=== PATIENT | male | born 1965 | race Caucasian/White ===

== ENCOUNTER 2017-01-08 18:15 | Inpatient (IN) | payer OTHER ==
[~2017-01-08] VITALS: Ht 190.5 cm; Wt 119.2 kg
[~2017-01-08 18:15] MED LIST: LISI-567 PO; LORA-305 PO; LORA1TAB PO; ONDA4TAB12 PO; ONDA8TAB10 PO
[2017-01-08 18:29] VITALS: BP 99/72; PULSE 143; RESP 16; O2SAT 98
--- NOTE | 2017-01-08 19:02 | ED.REPORT ---
HPI-General Illness Date of Service January 08, 2017 ED Provider: Sen Arguello MD 51 year old male with a history of alcoholism and HTN who presents to the ER due to confusion. Pt fell and hit his head on a hinge on the door 4 days ago and received 4 rika at the time. His daughter states that since the head injury he has been confused even when he has not been drinking alcohol. He also reports head pain, neck pain, vomit x1 yesterday, bloody stool [id number] and some decreased LOC. Pt denies abd pain. After the fall, the patient was seen again in the ER due to an episode of "blanking out". At the time patient was started on Librium for EtOH withdrawal. Pt has continued to drink despite being on this medication. Pt has hx of alcohol withdrawal with DT's and seizures. Pt states "I'll drink until its gone". Typically 4-6 hard ciders per day. His last drink was 30 minutes [employer]. Pt's last period of sobriety was about a month ago. Nursing Notes Stated Complaint: DIZZY, POST HEAD INJURY Chief Complaint: Head, Face, Neck Trauma Nursing Notes Reviewed: Yes Allergies: Coded Allergies: No Known Allergies (Unverified , 04/03/16) Scheduled Lorazepam (Ativan) 2 Mg Tablet 2 MG PO DIRECTED Take one tablet by mouth every 6 hours for 24 hours, then take 1/2 tablet by mouth every 6 hours for 48 hours, then take 1/2 tablet by mouth every 12 hours for 24 hours. Scheduled PRN ([Marijuana Candy]) 1 EACH PO BID PRN PRN RECREATIONAL Ibuprofen (Ibuprofen) 200 Mg Capsule 800 MG PO QID PRN PRN For Pain Lisinopril (Lisinopril) 20 Mg Tablet 20 MG PO QAM PRN PRN HYPERTENSION W/ WITHDRAWAL General Time Seen by MD: 19:00 Chief Complaint Altered mental status, Other (EtOH Intoxication) Hx Obtained From: Patient Arrived By: Ambulance Sudden in Onset?: No Location: : Head: Neck Quality: Painful Severity: Current: Mild Associated with: Reports: Headache, Neck pain, Denies: Abdominal pain, Fever, Shortness of breath Exacerbated by: Drinking Similar Sx Previous: Yes Past Medical History Past Medical History Notes: Seen in ED 04/03, 04/08 for ETOH (discharged to home, no [facility] hospitalizations, hx of sx x1 years ago, none since) Two ED visits for ETOH in March 2016 Past Medical History Hx of alcohol abuse Reports: Hypertension Past Surgical History Hernia surgery Family History Noncontributory Smoking History Never Smoker Social History Currently residing with his girlfriend. 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 Physical Exam Vital Signs Vital Signs Date Time Temp Pulse Resp B/P Pulse Ox O2 Delivery O2 Flow Rate FiO2 01/08/17 21:24 96 24 86/59 98 Room Air 01/08/17 18:29 36.7 143 16 99/72 98 Room Air Initial VS: Reviewed Skin: Warm, Dry, No cyanosis General/Constitutional: Awake, Alert Head / Eyes: Normocephalic, PERRL 4 rika to top of scalp without surrounding erytehma no active bleeding. Neck: Atraumatic, Full range of motion, No midline vertebral tend Respiratory / Chest: Breath sounds NL, Breath sounds = bilat, No respiratory distress, No rales, No rhonchi, No wheezing Cardiovascular: Regular rhythm, Heart sounds NL, No murmurs, Peripheral circulation NL Heart Rate / Rhythm: Positive: Tachycardia Abdomen: Soft, Non-tender (No RUQ tenderness), No guarding, No rebound Rectum / Perineum: Blood - occult heme - Neurologic: Oriented X3, Speech NL, No motor deficits No tremor or asterixis Interpretation & Diagnostics Lab Results Interpretation Result Diagram: 01/08/17 1925 01/08/17 1855 Test 01/08/17 18:55 01/08/17 19:25 01/08/17 19:32 01/08/17 19:36 Sodium Level 128mEq/L (134-144) Potassium Level 4.7mEq/L (3.5-5.2) Chloride Level 89mEq/L (97-108) Carbon Dioxide Level 24mmol/L (18-29) Blood Urea Nitrogen 8mg/dL (6-24) Creatinine 0.66mg/dL (0.76-1.27) Estimat Glomerular Filtration Rate 134mL/min (>59) Glucose Level 144mg/dL (60-99) Calcium Level 8.1mg/dL (8.5-10.1) Total Bilirubin 3.6mg/dL (0.0-1.2) Aspartate Amino Transf (AST/SGOT) 341U/L (0-50) Alanine Aminotransferase (ALT/SGPT) 201U/L (0-44) Alkaline Phosphatase 285U/L (25-150) Total Protein 5.7g/dL (6.4-8.4) Albumin 2.9g/dL (3.4-5.0) Alcohols 328mg/dL (0-10) White Blood Count 4.2th/mm3 (3.8-10.1) Red Blood Count 4.43mil/mm3 (4.40-5.80) Hemoglobin 13.8g/dL (13.8-17.2) Hematocrit 38.4% (41.0-50.0) Mean Corpuscular Volume 86.7fL (81-100) Mean Corpuscular Hemoglobin 31.2pg (27.0-35.0) Mean Corpuscular Hemoglobin Concent 35.9% (32.0-37.0) Red Cell Distribution Width 17.1% (12.3-15.4) Platelet Count 70bil/L (150-400) Neutrophils (%) (Auto) 45.1% (40-74) Lymphocytes (%) (Auto) 44.6% (14-46) Monocytes (%) (Auto) 9.9% (4-12) Eosinophils (%) (Auto) 0.2% (0-5) Basophils (%) (Auto) 0.2% (0-3) Prothrombin Time sec (8.1-12.5) Prothromb Time International Ratio ratio Activated Partial Thromboplast Time 31.8sec (22.8-33.0) Hold Red Top Tube Received (Received) Hold Edmonds Top Tube Received (Received) Hold Kim Top Tube Received (Received) Lipase 78U/L (13-60) Test 01/08/17 20:15 01/08/17 20:46 Urine Color Yellow (YELLOW) Urine Appearance Clear (CLEAR,HAZY) Urine pH 5.5 (5.0-8.0) Urine Specific [place] 1.004 (1.003-1.035) Urine Protein Negativemg/dL (NEG,TRACE) Urine Glucose (UA) Negativemg/dL (NEGATIVE) Urine Ketones Negativemg/dL (NEGATIVE) Urine Occult Blood Negative (NEGATIVE) Urine Nitrite Negative (NEGATIVE) Urine Bilirubin Negative (NEGATIVE) Urine Urobilinogen Normalmg/dL (NORMAL) Urine Leukocyte Esterase Negative (NEGATIVE) Urine RBC 0-2/hpf (0-2) Urine WBC 0-5/hpf (0-5) Urine Epithelial Cells Occasional/hpf (NONE-MOD) Urine Crystals None seen (NONE SEEN) Urine Bacteria None/hpf (NONE-FEW) Urine Hyaline Casts None/lpf (NONE) Urine Granular Casts None seen (NONE SEEN) Urine Waxy Casts None seen (NONE SEEN) Urine Red Blood Cell Casts None seen (NONE SEEN) Urine White Blood Cell Casts None seen (NONE SEEN) Urine Mucus None seen (None Seen) Urine Trichomonas None seen (NONE SEEN) Urine Yeast None (NONE SEEN) Urinalysis Comment Ammonia 17ug/dL (18-53) General Lab Results Interp 1: Labs reviewed ECG Interpretation Time: 19:18 Interpreted by: ED physician Normal ECG Interpretation: No acute ischemic changes Rhythm / Conduction: Atrial fibrillation (rate 110), Atrial fib with RVR CT Head Interpretation IMPRESSION: No acute intracranial abnormalities after fall. Dictated by: Bharath Fairchild M.D. on 01/08/2017 at 19:27 Study: Head CT no contrast Interpretation / Wet Read by: Interpret - Radiologist Re-Eval/Medical Decision Med Decision/Clinical Course 51-year-old male history of extensive alcohol abuse, withdrawal seizures, DTs presenting with confusion 4 days status post ground level fall. Patient reports that he was in [facility] over the weekend and was very intoxicated and fell and hit his head requiring rika. Since then he has been confused. He is also been taking Librium given by in [facility] and has been drinking since he came back. Normally drinks 4-6 times per day. In [facility] he drank as much as he could. He reports some right upper quadrant pain or last couple days which is resolved prior to arrival. His labs show INR and PTT to high to calculate, bilirubin of 3.6, normal white blood cell count, normal pneumonia. Patient will be admitted for alcoholic hepatitis. Also with atrial fibrillation with RVR which resolved prior to transfer without intervention. Right upper quadrant ultrasound is pending though I do not suspect cholecystitis given normal white blood cell count and no right upper quadrant tenderness. Discussed with GI who will see patient tomorrow. Patient was given prednisolone 40 mg and placed on CIWA. Time of Eval: 20:53 Re-Evaluation/Progress Note: Updated pt of labs. Recommended admission. Pt understands and agrees with plan. All questions addressed. Time of Eval: 22:00 Evaluation: Abdomen soft/non-tender Re-Evaluation/Progress Note: Pt rechecked and updated. Consultation #1: Referral / Consult Name: Gnia Rodriguez DO Consulted With: Hospitalist Call Returned at: 22:05 Road Oiler: Will see patient, Agrees with eval, Agrees with plan, Accepts admit Consultation #2: Referral / Consult Name: Sabino Jack MD Consulted With: On-call physician (GI) Call Returned at: 22:22 Road Oiler: Will see patient Note: No further recommendations. Counseled Regarding: Diagnosis, Lab results, Need for admission Discharge & Departure Primary Impression: Alcoholic hepatitis Ascites presence: without ascites Qualified Code: K70.10 - Alcoholic hepatitis without ascites Additional Impression: Atrial fibrillation with RVR Disposition: ADMITTED TO HOSPITAL Discharge Condition All VS Reviewed: Yes Referrals: Quyen Vicente MD (PCP) Crit Care Except Billable Proc Time Spent: 30-74 minutes Services Performed: Patient management by me, Time spent at bedside, Reviewing test results, Reviewing imaging, Discussing patient care, Documentation in record, Time with fam/surrogate Scribe Attestation Portions of this note were transcribed by Ivory Guerrero. I, (Dr. Sen Wright) personally performed the history, physical exam and medical decision- making; I reviewed and confirmed the accuracy of the information in the transcribed note. Signed by: Ivory Guerrero. [place], 01/08/2017, 2841 copies to: Quyen Vicente MD, Ben M MD January 08, 2017 19:02 Ivory Guerrero January 08, 2017 20:38
--- NOTE | 2017-01-08 19:32 | DRSVH ---
PROCEDURE: CT BRAIN WITHOUT CONTRAST ([id number]) INDICATIONS: 51 year-old male with altered mental status after fall 4 days ago. TECHNIQUE: Noncontrast 4.5 mm thick angled axial sections acquired from the foramen magnum to the vertex, with c oronal reformats. COMPARISON: None. FINDINGS: Image quality: Excellent. CSF spaces: Basal cisterns are patent. No extra-axial fluid collections. Ventricles are normal in size and shape. Brain: No midline shift. No intracranial masses or hemorrhage. Leblanc-white matter interface is norm al. Incidental prominent perivascular space is present within the right basal ganglia. Skull and face: Calvarium and visualized facial bones are intact, without suspicious lesions. Superi or left frontal scalp skin riak are present. Sinuses: Visualized sinuses and mastoids are clear. IMPRESSION: No acute intracranial abnormalities after fall. Dictated by: Bharath Fairchild M.D. on 01/08/2017 at 19:27 Approved by: Bharath Fairchild M.D. on 01/08/2017 at 19:30
[2017-01-08 19:35] LABS: BASOPHILS % (AUTO) 0.2 % (0-3); EOSINOPHILS % (AUTO) 0.2 % (0-5); MONOCYTES % (AUTO) 9.9 % (4-12); Mean Corpuscular Hemoglobin 31.2 pg (27.0-35.0); Mean Corpuscular Volume 86.7 fL (81-100); NEUTROPHILS % (AUTO) 45.1 % (40-74); Platelet Count 70 bil/L (150-400)
[2017-01-08] MEDS ORDERED: Diltiazem 5 mg/mL 5 mL Inj IVPUSH ONE (20:50)
[2017-01-08] MEDS ORDERED: PrednisoLONE 1 mg/mL 118 mL Solution PO ONE (20:50)
[2017-01-08] MEDS ORDERED: PrednisoLONE 3 mg/mL 237 mL Oral Liquid PO ONE (21:00)
[2017-01-08 21:03] LABS: APPEARANCE,URINE CLEAR (CLEAR,HAZY); COLOR,URINE YELLOW (YELLOW); OCCULT BLOOD,URINE NEGATIVE (NEGATIVE); PH,URINE 5.5 (5.0-8.0); UROBILINOGEN,URINE NORMAL (NORMAL)
[2017-01-08] MEDS ORDERED: Thiamine Inj 100 MG, Folic Acid Inj 1 MG, Magnesium Sulfate 50% Inj 2 GM, Multivitamins... IV ONE ×5 (21:20)
[2017-01-08] MEDS ORDERED: 0.9% Sodium Chloride 1,000 ML IV ONE (21:20)
[2017-01-08 21:24] VITALS: BP 86/59; PULSE 96; RESP 24; O2SAT 98
[2017-01-08] MEDS ORDERED: IBUP200C PO (21:36)
[2017-01-08] MEDS ORDERED: [UNRECOGNIZED DRUG - OTHER] PO (21:36)
[2017-01-08 22:12] VITALS: BP 102/70; PULSE 117; RESP 27
[2017-01-08] MEDS ORDERED: Ondansetron 2 mg/mL 2 mL Inj IVPUSH PRN ×2 (22:15→23:20)
[2017-01-08] MEDS ORDERED: Alum-Mag Hydrox-Simeth 30 mL Suspension PO PRN ×2 (22:15→23:20)
[2017-01-08 22:35] VITALS: BP 103/62; PULSE 116; RESP 16; O2SAT 100
[2017-01-08 23:20] VITALS: BP 114/73; PULSE 94; RESP 16; O2SAT 93
[2017-01-08] MEDS ORDERED: Polyethylene Glycol (PEG) 17 Gm Powder PO PRN (23:20)
[2017-01-08 23:45] VITALS: PULSE 139
--- NOTE | 2017-01-08 23:46 | PCM.HPMED ---
Subjective Date of Service January 08, 2017 Primary Provider: Admitting Physician: Gina Rodriguez DO Primary Care Physician: Quyen Vicente MD Attending Physician: Gina Rodriguez DO Admit Status: From the Emergency Department Chief Complaint: Confusion, nausea, vomiting History of Present Illness: Calvin Luque is a 51 year old man with a PMH of HTN, and alcoholism with a history of withdrawal seizures who presents following and episode 4 days ago in which he fell in [place] and suffered a laceration on his scalp requiring 4 tung while he was very inebriated. Since that day he has been "blackout drunk " with very little recollection of the past 3 days and with complete amnesia of a second admission to the hospital in [place] as related by his girlfriend who was with him throughout. He expresses an ardent desire to quit alcohol for good this time "no matter what it takes". He was given Librium in [place] which he continued to take despite continuing to drink heavily. He states that he has been quite nauseous for the past 2-3 days, which he has managed with Marijuana brownies with minimal improvement. He states his typical baseline consumption is 4-6 hard ciders daily, but that he drank significantly more than that while in [place]. He denies abdominal pain, hematochezia or melena, changes in vision or sensation, active bleeding from his scalp laceration, or current withdrawal symptoms such as tremor or anxiety. In the ED the patient underwent Head CT which was negative, Lab evaluation revealed significant transaminitis with a minimally elevated lipase, PT/INR 15.0 /1.39 Review of Systems: Comprehensive ROS negative except as outlined above in the HPI Allergies Coded Allergies: No Known Allergies (Unverified , 04/03/16) Home Medications ([Marijuana Candy]) 1 EACH PO BID PRN PRN RECREATIONAL Ibuprofen (Ibuprofen) 200 Mg Capsule 800 MG PO QID PRN PRN For Pain Lisinopril (Lisinopril) 20 Mg Tablet 20 MG PO QAM PRN PRN HYPERTENSION W/ WITHDRAWAL PMH Seen in ED 04/03, 04/08 for ETOH (discharged to home, no [facility] hospitalizations, hx of sx x1 years ago, none since) Two ED visits for ETOH in March 2016 Hx of alcohol abuse Reports: Hypertension Surgical History Hernia surgery Family History No significant family history that he is aware of Social History Hx Alcohol Use: Yes (daily a case of beer) Hx Substance Use: No Smoking Status: Never Smoker Exam Vital Signs Vital Sign - Last Date Time Temp Pulse Resp B/P Pulse Ox O2 Delivery O2 Flow Rate FiO2 01/08/17 22:51 36.7 116 16 103/62 100 Room Air Exam Gen: A/O x3 pleasant cooperative intoxicated gentleman smelling of alcohol Head: Approx 3 cm laceration with [address], no erythema, active bleeding, or discharge Neck: Supple, non tender, no JVD, no thyromegaly HEENT: PERRL, EOMI, no scleral icterus, no conjunctival pallor, mucous membranes moist CV: RRR, no murmurs rubs or gallops Resp: Lungs CTA BL, no wheezing rales or rhonchi Abd: Soft, mildly tender in RUQ, no rebound masses or guarding, Liver barely palpable below costal margin with deep inspiration Extr: no cyanosis clubbing or edema Neuro: No asterixis, no tremor, CN 2-12 grossly intact, no focal neurologic deficit Psych: Somewhat flippant affect with frequent jokes, some repetitious statements , several lewd comments with little apparent inhibition, pleasant affect Lab and Diagnostics Labs Item Value Date Time Red Blood Count 4.43 mil/mm3 01/08/171924 Red Cell Distribution Width 17.1 % H 01/08/171924 Platelet Count 70 kim/L L 01/08/171924 Neutrophils (%) (Auto) 45.1 % 01/08/171924 Lymphocytes (%) (Auto) 44.6 % 01/08/171924 Monocytes (%) (Auto) 9.9 % 01/08/171924 Eosinophils (%) (Auto) 0.2 % 01/08/171924 Basophils (%) (Auto) 0.2 % 01/08/171924 Estimat Glomerular Filtration Rate 134 mL/min 01/08/171854 Calcium Level 8.1 mg/dL L 01/08/171854 Total Bilirubin 3.6 mg/dL H 01/08/171854 Aspartate Amino Transf (AST/SGOT) 341 U/L H 01/08/171854 Alanine Aminotransferase (ALT/SGPT) 201 U/L H 01/08/171854 Alkaline Phosphatase 285 U/L H 01/08/171854 Ammonia 17 ug/dL L 01/08/17 204 Total Protein 5.7 g/dL L 01/08/171854 Albumin 2.9 g/dL L 01/08/171854 Lipase 78 U/L H 01/08/17 1936 Alcohols 328 mg/dL H 01/08/171854 Result Diagram: 01/08/17 1925 01/08/171854 Microbiology Urine culture pending X-Rays, CTs and MRIs CT BRAIN WITHOUT CONTRAST IMPRESSION: No acute intracranial abnormalities after fall. Dictated by: Bharath Fairchild M.D. on 01/08/2017 at 19:27 Approved by: Bharath Fairchild M.D. on 01/08/2017 at 19:30 . 12-lead ECG Initial ECG Afib rate 110, no acute ST changes Assessment & Plan Calvin Luque is a 51 year old man with a PMH of HTN, and alcoholism with prior withdrawal seizures 1 year ago who presents acutely intoxicated seeking medically assisted withdrawal. Recent history is significant for a GLF on resulting in a laceration requiring 4 tung. In the ED lab evaluation reveals acutely elevated transaminitis with elevated Alk Phos in a Hepatocellular pattern consistent with alcoholic Hepatitis MELD and Discriminate Function 1. Alcoholic Hepatitis, POA, likely acute on chronic. Active -Patient MELD 22 confers estimated 6% month mortality, Discriminate Function 26.6 does not indicate need for glucocorticoids -Banana bag given in the ED, continue thiamine supplementation -Full liquid diet due to nausea, advance as tolerated -RUQ US of Liver tomorrow AM -Patient with multiple ED visits for outpatient Benzo assisted alcohol detoxification, all of these attempts have ultimately proved fruitless with sporadic non-sustained periods of sobriety; patient would likely benefit from a more intensive detoxification and rehabilitation process -Patient without Ascites, little concern for SBP 2. Acute alcohol intoxication with history of withdrawal seizures, POA, acute on chronic. Active -Patient expressing a desire to undergo inpatient detox -Reported history of withdrawal seizures during prior detox -Blood alcohol 326 on admit with last drink 30 minutes prior to presentation(14: 00 on 01/08/17) -WA protocol with Valium -Case management referral for discussion of extended inpatient rehabilitation 3. Scalp Laceration, POA, acute. Active -[place] appear patent and wound does not exhibit any signs of active bleeding or infection -Tung inserted 01/04/17, will likely need to come out during this hospitalization -Monitor for bleeding given grossly elevated INR 4. Afib with RVR, POA, acute. Active -Patient is not aware of any previous diagnosis of Afib -His last 2 ER visits for EtOH withdrawal he was markedly tachycardic but there is no record of ECG for those visits -Patient borderline Hypotensive upon presentation -Will attempt fluid resuscitation to correct Tachycardia -Given single dose of Diltiazem in ED which brought rate down to 110-120 range, will consider further dosing should the rate increase again -ECHO tomorrow AM to eval for structural heart disease in the setting of longstanding alcoholism 5. Hyponatremia, POA, chronicity uncertain. Active -Na 128 -Will consider fluid restriction on this gentleman once Lactic Acid has trended back to normal and Banana bags have run their course 6. Lactic Acidosis, POA, likely chronic. Active -Likely secondary to impaired Lactate utilization in alcoholism -Patient has received 2L of banana bag IVF since admission -Trending Lactate Q4 7. Mild normocytic anemia, POA, likely chronic. Active -H/H 13.8/38.4 -Will repeat CBC in the AM 8. Mild thrombocytopenia, POA, likely chronic. Active -Likely secondary to Above liver disease -Given the above mild normocytic anemia a peripheral blood smear will be ordered 9. Mildly elevated Lipase, POA, Likely chronic. Active -Likely secondary to above alcoholism -Patient asymptomatic, likely sub clinical mild alcoholic pancreatitis -IVF and supportive care as above -Continue to encourage alcohol cessation Code Status: FULL CODE Disposition: Inpatient, anticipated length of stay >2 midnights due to severity of condition and complexity of treatment plan. Pain Evaluation: Adequate Pain Control GI Prophylaxis: H2 joan VTE Prophylaxis: Other (Grossly elevated INR) Resuscitation Status: CPR: Attempt Resuscitation Attending Statement The patient was seen and examined together with house staff on 01/08/2017 and I agree with the history, exam and plan as outlined in the note above. Sang Smith DO January 08, 2017 23:46 Gina Rodriguez DO January 09, 2017 05:36
[2017-01-09] VITALS (7 sets, daily range): BP systolic 122–155; BP diastolic 81–107; PULSE 75–150; RESP 13–20; O2SAT 93–98
[2017-01-09 00:05] LABS: INR 1.39 ratio
--- NOTE | 2017-01-09 01:02 | NUR ---
NEW ADMIT Pt admitted to floor @ 2320 from ED for increased confusion from a head injury from a recent fall 4 days ago. Pt has 4 staple on top of head from fall. Pt has a hx of ETOH abuse. Pt c/o 6/10 pain in head/neck, received 2mg Morphine with good results. Current CIWA score is 5. Admit complete, pt resting comfortably @ this time.
[2017-01-09] MEDS ORDERED: Diltiazem 5 mg/mL 5 mL Inj IVPUSH ONE ×2 (04:25→06:05)
[2017-01-09 05:09] LABS: BASOPHILS % (AUTO) 0 % (0-3); EOSINOPHILS % (AUTO) 0 % (0-5); MONOCYTES % (AUTO) 4.3 % (4-12); Mean Corpuscular Hemoglobin 31.2 pg (27.0-35.0); NEUTROPHILS % (AUTO) 69.6 % (40-74); Platelet Count 66 bil/L (150-400)
[2017-01-09 05:30] LABS: Magnesium 1.9 mg/dL (1.6-2.6); Phosphorus 3.1 mg/dL (2.5-4.9)
--- NOTE | 2017-01-09 05:33 | NUR ---
HEART RATE Pt's HR continued to be elevated 100-200's and was hovering in the 160's @ rest. Pt was give 10mg Dilt IV push with good results. Pt's HR is stable in the 100's @ this time. Pt is currently in A-flutter. Addendum: 01/09/17 at 0708 by NATALIE KAYE RN HR continued to spike into 200's, gave 20mg Dilt IV push with good results. Pt stable in 100's again at this time.
[2017-01-09] MEDS ORDERED: Piperacillin-Tazo 3.375 Gm Inj 3.375 GM in Dextrose 5% Minibag Plus 50 ML IV ONE (05:35)
[2017-01-09] MEDS ORDERED: PrednisoLONE 3 mg/mL 237 mL Oral Liquid PO SCH (08:30)
[2017-01-09] MEDS ORDERED: Thiamine Inj 100 MG, Folic Acid Inj 1 MG, Magnesium Sulfate 50% Inj 2 GM, Multivitamins... IV SCH ×5 (08:30)
--- NOTE | 2017-01-09 09:22 | DRSVH ---
PROCEDURE: US ABDOMEN INDICATIONS: Likely Alcoholic Hepatitis TECHNIQUE: Real-time scanning was performed of the abdominal and retroperitoneal organs, with image documentatio n. COMPARISON: None. FINDINGS: Liver length: 19.01 cm Gallbladder Wall Thickness: 3.30 mm CHD: Not seen CBD: Not seen Spleen length: 11.10 cm Right kidney length: 12.10 cm Left kidney length: 11.53 cm Aorta(Proximal): 2.14 cm Aorta(Mid): 1.85 cm Aorta(Distal): 1.92 cm RCIA: Obscured by body habitus less bowel gas LCIA: Obscured by body habitus less bowel gas Liver: The liver is coarsely echogenic. No focal hepatic lesion. The liver is enlarged Gallbladder: Gallbladder sludge is present which occupies approximately 75% of the gallbladder lumen. There is questionable/borderline distention of the gallbladder. No pericholecystic fluid or sonograp hic Watkins sign Biliary ducts: Intrahepatic bile ducts are non-dilated. Extrahepatic bile duct caliber is normal. Normal is 6-7 mm or less in diameter, or 10 mm or less post-cholecystectomy. Pancreas: Visualized portions of the pancreas are sonographically normal. The pancreatic tail is no t well seen sonographically Spleen: Spleen is normal in size and homogeneous in echotexture. Kidneys: Kidneys are normal in size and echotexture. No hydronephrosis or nephrolithiasis. No lexi d masses. Aorta: Visualized aorta is normal in caliber at less than 3 cm. Iliacs: Proximal common iliac arteries are normal in caliber at less than 2.5 cm. IVC: Intrahepatic inferior vena cava is patent. Miscellaneous: No free abdominal fluid. IMPRESSION: Large amount of gallbladder sludge with borderline gallbladder wall thickening, and mildly distended appearance. No other sonographic criteria for acute cholecystitis however the bile ducts are not well seen due to body habitus/bowel gas. Therefore, please correlate clinically and with LFTs. Enlarged, echogenic liver suggesting diffuse hepatocellular disease/fatty infiltration. Dictated by: Luke Frazier M.D. on 01/09/2017 at 9:18 Approved by: Luke Frazier M.D. on 01/09/2017 at 9:21
[2017-01-09] MEDS ORDERED: 0.9% Sodium Chloride 500 ML IV ONE (10:15)
--- NOTE | 2017-01-09 10:25 | NUR ---
Social Work: Chemical Dependency D: Per EMR review, pt is a 51 year old male admitted for Alcoholic Hepatitis, AFIB with RVR. Pt is [employer] [facility] [address]. PCP is Quyen Vicente MD. No listed NOK. Advanced directives not completed- information provided to pt by BULLDOZER/LOADER/COMPACTOR/SCRAPER. Readmit score not entered at this time. Social Work Consult Received by to provide CD resources. BULLDOZER/LOADER/COMPACTOR/SCRAPER met with pt and s/o at bedside. Sw role explained and contact info provided. Pt lives in [place] with his s/o. Pt works for [employer] and is I at baseline. Pt endorses a long history of drinking and states that he was in [place] last week and drank heavily. Pt reports drinking at least 1-2 fifths a day of hard alcohol. Pt states that he does not want to do inpatient treatment as he needs to work and pay bills. Pt is very interested in intensive outpatient programs and would like to speak to the on-site Chemical Dependency Counselor from [employer] [facility]. Pt completed Release of Information for [facility] and referral provided. A: Pt who is I at baseline. P: Anticipate pt to discharge home when medically stable; [facility] CPD to follow up with pt prior to discharge to provide outpatient resources. [employer]
--- NOTE | 2017-01-09 10:28 | PCM.CHPMED ---
Subjective Date of Service: January 09, 2017 Primary Physician: Admitting Physician: Gina Rodriguez DO Primary Care Physician: Quyen Vicente MD Attending Physician: Gina Rodriguez DO Chief Complaint: Chief Complaint: Confusion, nausea, vomiting, excessive alcohol consumption History of Present Illness: GI consult note 51-year-old man with hypertension and alcohol abuse with history of seizures who presented to the emergency department due to excessive drinking over the last week with fall and confusion started 4 days ago. Patient has been abusing alcohol since he was 13 and is a member of [employer]. He took a visit to [place] with his friend an consumed large amounts of alcohol causing him to fall and sustained a laceration scalp. Patient was evaluated in the emergency department in [place] with closing of the laceration. While in the airport prior to returning home the patient suddenly became confused and withdrawn an ambulance was called with the subsequent stay in the hospital that she is unable to remember. Per patient and his reports the sudden onset of confusion was secondary to alcohol withdrawal and patient was given Librium which he has continued to take with alcohol. Since patient is returned he has continued to drink, with hard cider being his drink of choice, consuming 6 drinks a day. Patient states that he has intermittent nausea over the last couple of days which is been relieved with marijuana. He denies vomiting, changes in bowel or bladder, hematochezia/melena, hallucinations, or abdominal pain. He has some reported jaundice which is significantly decreased per patient report. Patient does not feel dizzy or lightheaded. Patient has regularly been checked up as an outpatient LFTs which she states are usually normal despite his drinking. He also states that he is about to lose his job due to his drinking habits. In the ED the patient underwent CT scan which was negative for bleeding. GI was consulted due to alcoholic hepatitis and elevated LFTs. Patient underwent ultrasound this morning which revealed some gallbladder sludge but no additional evidence of cholecystitis. Was enlarged echogenic liver suggestive of diffuse hepatocellular injury. Review of Systems: See history of present illness PMH Past Medical History Hypertension Alcohol abuse Multiple hospitalizations due to alcohol Hx Any Other Health Problems?: NoHx Diabetes: NoBedside Blood Glucose: 156 Surgical History Hernia surgery Home Medications ([Marijuana Candy]) 1 EACH PO BID PRN PRN RECREATIONAL Ibuprofen (Ibuprofen) 200 Mg Capsule 800 MG PO QID PRN PRN For Pain Lisinopril (Lisinopril) 20 Mg Tablet 20 MG PO QAM PRN PRN HYPERTENSION W/ WITHDRAWAL Allergies: Coded Allergies: No Known Allergies (Unverified , 04/03/16) Family History Family History History of cancer Social History Hx Alcohol Use: Yes (daily a case of beer)Hx Substance Use: No Smoking Status: Never Smoker Exam Vital Signs Vital Sign - Last Date Time Temp Pulse Resp B/P Pulse Ox O2 Delivery O2 Flow Rate FiO2 01/09/17 09:50 36.6 75 20 129/89 93 Room Air Intake and Output 01/08/17 01/08/17 01/09/17 Cumulative From/Thru 15:00 23:00 07:00 01/08/17 20:30 - 01/09/17 06:28 Intake Total 1000 ml 1680 ml 2680 ml Output Total 600 ml 0 ml 600 ml Balance 400 ml 1680 ml 2080 ml Intake Oral 1680 ml 1680 ml IV Total 1000 ml 1000 ml Output Urine Total 600 ml 0 ml 600 ml # Voids 1 1 Additional Information: General: Patient awake and alert and conversive HEENT: Mucous membranes moist, no JVD, nares patent, PERRLA, sclera show some mild icterus Cardio: Regular rate and rhythm; patient does not appear to be in A. fib this morning Respiratory: CTA bilaterally with some coarse breath sounds in the bases and wheezing Abdomen: Obese, nontender, nondistended, soft, negative Watkins sign Extremities: Mild edema noted bilaterally, moving all 4 extremities, pulses intact Skin: No telangiectasias or rashes Psych: Patient mentation seems mildly suppressed patient's arrival carry on conversations and show appropriate mood and affect Neuro: Mild tremor, No asterixis; Lab and Diagnostics Result Diagram: 01/09/1744401/09/17444 Assessment & Plan Assessment Problem list Alcoholic hepatitis Excessive alcohol abuse Transient A. fib Lactic acidosis Leukopenia with thrombocytopenia mild anemia Assessment/plan 51-year-old male with excessive alcohol consumption who presents with confusion and elevated LFTs with alkaline phosphatase also elevated to almost double. Patient also has appears to be transient atrial fibrillation, lactic acidosis likely from hepatocellular damage and inability to clear the lactic acid, and nearly pancytopenia with a neutrophil count of only 1200. It is likely that LFTs are due to alcoholic hepatitis but there could also be some degree of biliary obstruction and an elevated alkaline phosphatase. Patient's pancytopenia is also likely due to alcohol suppression of the bone marrow. Patient does not appear to have macrocytosis and I suspect his bilirubin, while elevated, is likely due to an inability to conjugate versus ongoing hemolysis versus acute GI bleed. Patient's Kina score is 6 and discriminate function is 15. Recommend a hepatitis panel, additional IV fluids at 150-200 until lactic acidosis is reduced, echocardiogram, and we will consider the use of MRCP to evaluate for biliary obstruction to explain the alkaline phosphatase, but currently this is less likely. Also recommend daily CMP is, and direct and total bilirubin, repeat lipase, and GGT. We will continue to follow the patient with you. Thank you for allowing us to participate in care of this patient Problems: Pain Evaluation: Adequate Pain Control GI Prophylaxis: H2 joan VTE Prophylaxis: Other (Grossly elevated INR) Resuscitation Status: CPR: Attempt Resuscitation Attending Statement Patient seen and examined. Agree with assessment and plan as described by Dr Sr. Concerned about prospect of mild Wernicke's enecph. Continue thiamine. Continue fluids and trend lactate. Expect Bili to rise somewhat still. Will follow discrim fxn. Will continue to follow. Continue efforts to manage the etoh w/d. Dann Sr DO January 09, 2017 10:28 Sabino Jack MD January 09, 2017 16:57
[2017-01-09] MEDS ORDERED: 0.9% Sodium Chloride 250 ML ONE (12:51)
[2017-01-09] MEDS: THIAMINE IV SCH ×2 (13:01)
[2017-01-09] MEDS: NS IV SCH ×2 (13:01)
[2017-01-09] MEDS ORDERED: 0.9% Sodium Chloride 1,000 ML IV ONE ×2 (13:15→16:20)
--- NOTE | 2017-01-09 14:49 | DRSVH ---
[facility] [address] [place] [address] Echocardiogram Report Name: YAMILE PONCE LStudy Date: 01/09/2017 Height: 75 in Hospital Exam Location: [facility] Weight: 255 lb Gender: Male BSA: 2.4 m2 : 1965 Age: 51 yrs BP: 132/100 m mHg Reason For Study: Ordering Physician: Performed By: Katya Urbina Referring Physician: DR. ALFA WHITTEN Interpretation Summary The left ventricle is normal in size. Left ventricular systolic function is low normal. The ejection fraction is estimated to be 50-55%. There are no focal wall motion abnormalities. The right ventricle is normal in size and function. Pulmonary artery pressures cannot be estimated because of the lack of a measurable TR jet velocity. Both atria are normal in size. There is mild mitral regurgitation. There is no other significant valvular heart disease. The ascending aorta is mildly enlarged. Procedure: A two-dimensional transthoracic echocardiogram with color flow and Doppler was performed. The apical views were difficult to obtain and are suboptimal in quality. The subcostal views were difficult to obtain and are suboptimal in quality. A contrast injection of Definity was performed to improve assessment of LV function. Contrast was injected into an intravenous site in the left arm. A total of 7 cc of contrast was given. There is no prior echocardiogram noted for this patient. The patient was in a tachycardic rhythm during the exam. The patient did well with the Definity Contrast. Left Ventricle: The left ventricle is normal in size. There is normal left ventricular wall thickness. Left ventricular systolic function is low normal. The ejection fraction is estimated to be 50-55%. There are no focal wall motion abnormalities. Diastolic function could not be accurately assessed due to tachycardia. Right Ventricle: The right ventricle is normal in size and function. Atria: Both atria are normal in size. There is no Doppler evidence for an atrial septal defect. Mitral Valve: The mitral valve leaflets appear normal. There is no evidence of stenosis, fluttering, or prolapse. There is mild mitral annular calcification. There is mild mitral regurgitation. Aortic Valve: The aortic valve is trileaflet. The aortic valve opens well. No aortic regurgitation is present. Tricuspid Valve: The tricuspid valve leaflets are thin and pliable. There is a trace or physiologic amount of tricuspid regurgitation. Pulmonary artery pressures cannot be estimated because of the lack of a measurable TR jet velocity. Pulmonic Valve: The pulmonic valve is not well visualized. There is no pulmonic valvular regurgitation. There is no other significant valvular heart disease. Great Vessels: The aortic root is normal size. The ascending aorta is mildly enlarged. The aortic arch is normal in size. The pulmonary artery is normal size. The IVC was not well visualized secondary to technical limitations making central venous pressures difficult to estimate. Pericardium/ Pleura There is no pericardial effusion. There is no pleural effusion. MMode/2D Measurements & Calculations LVIDd: 5.0 cm LA dimension: 4.6 cm RA long axis LVOT diam: 2.3 cm LVIDs: 3.7 cm AoV Opening FS: 26.1 % LA A2 area: 22.7 cm RA area EPSS: 0.60 cm LA A4 area: 24.6 cm Ao root diam IVSd: 1.1 cm LA length (vol) : 23.0 cm LVPWd: 1.0 cm RA vol asc Aorta Diam LA vol: 71.2 ml : 77.5 ml LA vol index RA Ao Arch Diam (Prox : 31.8 mm2 Trans): 3.1 cm : 29.3 ml/m2 LV tan. diameter/BSA LV sys. diameter/BSA (cm/m^2): 2.1 (cm/m^2): 1.5 Doppler Measurements & Calculations Ao V2 max: 128.5 cm/secMV E max shukri MV E/A: 0.75 PA V2 max Ao max P.6 mmHg : 55.9 cm/sec Med Peak E' Shukri : 118.9 cm/sec Ao mean P.3 mmHg MV A max shukri PA mean PG LVOT Max Shukri : 74.3 cm/sec E/E' med: 4.3 : 74.8 cm/sec MV P1/2t Lat Peak E' Shukri PA Accel Time : 36.5 msec : 0.06 sec TNAG(I,D): 2.3 cm E/E' lat: 6.3 sev ratio: 0.56 E/e' average: 5.3 Pulm A Revs Dur MV P1/2t max shukri Ao V2 mean LV V1 max PG PA V2 mean : 100.5 cm/sec : 85.2 cm/sec Ao V2 VTI: 23.8 cmLV V1 VTI: 13.3 cm MVA(P1/2t): 6.0 cm2 TANG(V,D): 2.3 cm2 TANG indexed to BSA (cm^2/m^2): 0.93 Reading Physician:DEB
[2017-01-09] MEDS ORDERED: metroNIDAZOLE Inj 1,000 MG in IV Premix 1 EACH IV ONE (16:15)
[2017-01-09] MEDS ORDERED: levoFLOXacin Inj 750 MG in IV Premix 1 EACH IV ONE (16:15)
--- NOTE | 2017-01-09 16:46 | PCM.PNMED ---
Subjective Date of Service January 09, 2017 Subjective Calvin Luque is a 51 year old man with a PMH of HTN, and alcoholism with prior withdrawal seizures 1 year ago who presents acutely intoxicated seeking medically assisted withdrawal. Recent history is significant for a GLF on resulting in a laceration requiring 4 tung. In the ED lab evaluation reveals acutely elevated transaminitis with elevated Alk Phos in a Hepatocellular pattern consistent with alcoholic Hepatitis MELD and Discriminate Function. Hospital day #2. Overnight: No acute events since admission. Today: The patient states he feels fine and denies any chest pain, shortness of breath, cough, or fevers. He states he would like to be in inpatient rehab when he is discharged. The remainder of the review of systems is negative otherwise. Exam Vital Signs Vital Sign - Last Date Time Temp Pulse Resp B/P Pulse Ox O2 Delivery O2 Flow Rate FiO2 01/09/17 11:44 37.0 102 20 132/100 96 Room Air Intake and Output 01/08/17 01/08/17 01/09/17 Cumulative From/Thru 15:00 23:00 07:00 01/08/17 20:30 - 01/09/17 06:28 Intake Total 1000 ml 1680 ml 2680 ml Output Total 600 ml 0 ml 600 ml Balance 400 ml 1680 ml 2080 ml Intake Oral 1680 ml 1680 ml IV Total 1000 ml 1000 ml Output Urine Total 600 ml 0 ml 600 ml # Voids 1 1 Exam Gen: A/O x3 pleasant cooperative intoxicated gentleman smelling of alcohol Head: Approx 3 cm laceration with [address], no erythema, active bleeding, or discharge Neck: Supple, non tender, no JVD, no thyromegaly HEENT: PERRL, EOMI, no scleral icterus, no conjunctival pallor, mucous membranes moist CV: RRR, no murmurs rubs or gallops Resp: Lungs CTA BL, no wheezing rales or rhonchi Abd: Soft, mildly tender in RUQ, no rebound masses or guarding, Liver barely palpable below costal margin with deep inspiration Extr: no cyanosis clubbing or edema Neuro: No asterixis, no tremor, CN 2-12 grossly intact, no focal neurologic deficit Psych: Somewhat flippant affect with frequent jokes, some repetitious statements , several lewd comments with little apparent inhibition, pleasant affect IVs and Medications Medications Reviewed: Medications were reviewed in detail Lab and Diagnostics Result Diagram: 01/09/17 0445 01/09/17 0445 Microbiology Urine culture pending X-Rays, CTs and MRIs CT BRAIN WITHOUT CONTRAST IMPRESSION: No acute intracranial abnormalities after fall. Dictated by: Bharath Fairchild M.D. on 01/08/2017 at 19:27 Approved by: Bharath Fairchild M.D. on 01/08/2017 at 19:30 . 12-lead ECG Initial ECG Afib rate 110, no acute ST changes Cardiac Echo Impressions Interpretation Summary The left ventricle is normal in size. Left ventricular systolic function is low normal. The ejection fraction is estimated to be 50-55%. There are no focal wall motion abnormalities. The right ventricle is normal in size and function. Pulmonary artery pressures cannot be estimated because of the lack of a measurable TR jet velocity. Both atria are normal in size. There is mild mitral regurgitation. There is no other significant valvular heart disease. The ascending aorta is mildly enlarged. Assessment & Plan Calvin Luque is a 51 year old man with a PMH of HTN, and alcoholism with prior withdrawal seizures 1 year ago who presents acutely intoxicated seeking medically assisted withdrawal. Recent history is significant for a GLF on resulting in a laceration requiring 4 tung. In the ED lab evaluation reveals acutely elevated transaminitis with elevated Alk Phos in a Hepatocellular pattern consistent with alcoholic Hepatitis MELD and Discriminate Function. Hospital day #2. 1. 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 Active -Patient MELD 22 confers estimated 6% month mortality, Discriminate Function 26.6 does not indicate need for glucocorticoids -Banana bag given in the ED, continue thiamine supplementation -Full liquid diet due to nausea, advance as tolerated -RUQ US of Liver which did show some sludge and borderline thickening. He is also noted to have direct hyperbilirubinemia. HIDA scan ordered. -Patient with multiple ED visits for outpatient Benzo assisted alcohol detoxification, all of these attempts have ultimately proved fruitless with sporadic non-sustained periods of sobriety; patient would likely benefit from a more intensive detoxification and rehabilitation process 2. Lactic Acidosis, present on admission, worsening -Patient's conjugated bilirubin is elevated which does suggest that the patient' s liver should be able to clear lactate -This is concerning for sepsis and given the patient's significant alcohol abuse perhaps his body is unable to mount a classic SIRS response. Patient is becoming borderline neutropenic, with increasing lactate, and new atrial fibrillation -Will continue with NS boluses as patient's ECHO shows no evidence of heart failure and continue to trend lactate -Will start patient on Flagyl and Levaquin. Likely source of infection is biliary system. 3. Acute alcohol intoxication with history of withdrawal seizures, present on admission, acute on chronic. Active -Patient expressing a desire to undergo inpatient detox -Reported history of withdrawal seizures during prior detox -Blood alcohol 326 on admit with last drink 30 minutes prior to presentation(14: 00 on 01/08/17) -[facility] protocol with Valium -Case management referral for discussion of extended inpatient rehabilitation 4. Pancytopenia, not present on admission, -Possibly due to bone marrow suppression from alcohol, however may be due to sepsis -Will continue to monitor -Will rule out hemolysis 5. Afib with RVR, present on admission, acute. Active -Patient is not aware of any previous diagnosis of Afib -His last 2 ER visits for EtOH withdrawal he was markedly tachycardic but there is no record of ECG for those visits -Patient borderline Hypotensive upon presentation -Given single dose of Diltiazem in ED which brought rate down to 110-120 range, will consider further dosing should the rate increase again -ECHO unremarkable 6. Hyponatremia, present on admission, chronicity uncertain. Active -likely hypovolemic hyponatremia given patient's large alcohol intake and poor intake otherwise -sodium improved with NS 7. Scalp Laceration, present on admission, acute. Active -Tung appear patent and wound does not exhibit any signs of active bleeding or infection -Tung inserted 01/04/17, will likely need to come out during this hospitalization -Monitor for bleeding given grossly elevated INR 8. Mildly elevated Lipase, present on admission, Likely chronic. Resolved -Likely secondary to above alcoholism -Patient asymptomatic, likely sub clinical mild alcoholic pancreatitis -IVF and supportive care as above -Continue to encourage alcohol cessation Code Status: FULL CODE Disposition: Anticipate patient will be in the hospital for several more days as he is evaluated and treated for the above conditions. GI Prophylaxis: H2 joan VTE Prophylaxis: Other (Grossly elevated INR) Resuscitation Status: CPR: Attempt Resuscitation Attending Statement Patient was seen and examined with Dr. Noel. Chart was reviewed and agree with the above progress note. Sameera Noel DO January 09, 2017 16:04 Yasmany El MD January 09, 2017 16:57
[2017-01-09 17:04] LABS: BASOPHILS % (AUTO) 0 % (0-3); EOSINOPHILS % (AUTO) 0 % (0-5); MONOCYTES % (AUTO) 10.5 % (4-12); Mean Corpuscular Hemoglobin 30.8 pg (27.0-35.0); Mean Corpuscular Volume 85.9 fL (81-100); NEUTROPHILS % (AUTO) 67.5 % (40-74); Platelet Count 67 bil/L (150-400)
[2017-01-09 20:26] LABS: Unsaturated Iron Binding < 16.8 ug/dL
[2017-01-09] MEDS ORDERED: Diltiazem 5 mg/mL 5 mL Inj IV ONE ×2 (20:45→21:40)
--- NOTE | 2017-01-09 22:19 | NUR ---
HEART RATE/CIWA Pt's heart rate was 130-150's sustained, gave 5mg Dilt IV push, with poor results HR still in 130's. Gave another push of Dilt 5mg which brought HR down to 100's. Pt CIWA score was 11 and c/o a headache and anxiety. Pt received 2mg Morphine and 10mg Valium with good results. No other issues noted at this time.
[2017-01-10] VITALS (9 sets, daily range): BP systolic 127–147; BP diastolic 86–105; PULSE 87–137; RESP 16–18; O2SAT 93–99
[2017-01-10] MEDS: metroNIDAZOLE Inj 500 MG in IV Premix 1 EACH IV SCH ×2 (00:36→11:17)
[2017-01-10 03:09] LABS: Hepatitis A Antibody IgM Negative (Negative); Hepatitis B Core Antibody IgM Negative (Negative)
[2017-01-10 05:16] LABS: BASOPHILS % (AUTO) 0.2 % (0-3); EOSINOPHILS % (AUTO) 0.2 % (0-5); MONOCYTES % (AUTO) 7.8 % (4-12); Mean Corpuscular Volume 86.7 fL (81-100); NEUTROPHILS % (AUTO) 51.2 % (40-74); Platelet Count 86 bil/L (150-400)
[2017-01-10 05:44] LABS: Magnesium 1.5 mg/dL (1.6-2.6)
[2017-01-10 08:08] LABS: Vitamin B12 1292 pg/mL (211-946)
[2017-01-10] MEDS ORDERED: NS IV SCH ×2 (08:30)
[2017-01-10] MEDS ORDERED: THIAMINE IV SCH ×2 (08:30)
[2017-01-10] MEDS ORDERED: levoFLOXacin Inj 750 MG in IV Premix 1 EACH IV SCH (08:30)
[2017-01-10] MEDS ORDERED: Magnesium Sulf 4 Gm/100 mL H2O 4 GM in IV Premix 1 EACH IV ONE (09:00)
[2017-01-10] MEDS: NS IV SCH ×2 (09:37)
[2017-01-10] MEDS: THIAMINE IV SCH ×2 (09:37)
[2017-01-10] MEDS: Heparin 5,000 Unit/mL Inj SUBQ SCH ×2 (11:15→22:18)
--- NOTE | 2017-01-10 11:34 | NUR ---
Telemetry Update: Sinus Rhythm Patient has been Aflutter 100-140s overnight. At 06:55 patient converted to Sinus Rhythm in the 80-100s. KARLA Davis aware.
--- NOTE | 2017-01-10 13:23 | PROG NOTE ---
[address] [address] PROGRESS NOTE PATIENT: YAMILE PONCE : 1965 MR#: [id number] ADMIT: 01/08/2017 JOB ID: [id number] DATE: 01/10/2017 SUBJECTIVE: The patient feels fine, had minimal shakes this morning. He denies any abdominal pain. He is not reporting any nausea or vomiting. He has been afebrile. Lactate remains elevated at 3.9. Bilirubin is up a little bit. Still has a moderate transaminitis. OBJECTIVE: Blood pressure is 127/86, pulse 98, breathing 16, temperature 36.6, 95% on room air. The patient was in no distress. Alert, oriented, appropriate, cooperative, conversational. Abdomen is soft. No tenderness to palpation appreciated. LABORATORIES: An INR was not done today. His bilirubin is 5.0. AST 421, ALT 190, alk phos 251. Albumin 2.4. Folate greater than 19.9. Vitamin B12 1292. Lactate is 3.9. Magnesium 1.5, sodium 129, potassium 4.4, chloride 90, bicarbonate 24, BUN 8, creatinine 0.88, glucose 108. White count 5.6, hemoglobin 12.1, hematocrit 33.8, platelets 86. Hepatitis serologies were negative. Echocardiogram results were reviewed and appeared somewhat unremarkable. Ultrasound from yesterday shows a large amount of gallbladder sludge, borderline gallbladder wall thickening, mildly distended appearance. He had no evidence of any biliary dilatation. 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 He has what appears to be a type B lactic acidosis likely from the alcohol-induced liver injury. I expect his bili to rise a little further. Will continue to monitor this. I would like to see a PT/INR every day to be able to calculate his discriminant function. Currently he is not indicated for prednisolone or pentoxifylline. I recommend continued thiamine supplementation and ongoing treatment of his alcohol withdrawal recognizing that his last drink was about 30 minutes prior to admission here in the hospital. Electrolyte abnormalities as per primary hospitalist service. I will continue to follow. NOTE: This is a no charge physician visit. Please do not assess a physician charge for this particular note.
[2017-01-10 14:15] LABS: INR 1.18 ratio
--- NOTE | 2017-01-10 16:17 | NUR ---
Multidisciplinary Communication, Patient Questions 0715 - Spoke to Sang from Nuclear Medicine who got report for his scheduled Hyda scan. He said his scan would happen after several STAT scans were completed first. He asked that the patient have a snack to eat in the meantime, but as soon as possible. He was given a piece of toast and chocolate pudding which he ate. 1227 - Talked to Sang who said the patient just had some chicken broth and was telling him that Dr. Krishan Watts had told him he was cancelling the Hyda scan. Paged Dr. Watts who called back and said that no scan needed to happen. The scan was cancelled. 1508 - Spoke with Dr. Watts in the hallway regarding some of the patient's questions. He was wondering if his head rika could come out yet and if he could go to an AA meeting in the hospital tomorrow (in one of the conference rooms). Dr. Watts said he wanted to wait 10 days before taking out rika (pt had them in Thursday the ). He said he didn't want him leaving the unit due to his higher acuity of care and potential for withdrawal symptoms that staff would not be able to assess if he were off the unit. Informed the patient of the Doctor's orders. 3905 - Paged Dr. Watts as the patient and his Significant Other (SO) wanted to speak to him so his SO could get an update and more details. Dr. Watts called back saying he was very busy, but would come by in a couple of hours. Informed the patient and his SO of this. They were appreciative of this nurse reaching out to the MD. Care continues. Addendum: 01/10/17 at 1844 by EMETERIO SCOTT RN [id number] - Paged Dr. Watts saying the patient had drank about 3L of fluid today between water and Gatorade like drinks. Asked if he still wanted normal saline IV at 100 mls/hour hung. He called back and said that yes he did want the NS hung and for the patient to have "No free water or drinks because of his low sodium." Educated the patient on what the MD had instructed and hung the NS. Care continues.
--- NOTE | 2017-01-10 17:04 | PCM.PNMED ---
Subjective Date of Service January 10, 2017 Subjective Patient is doing well, no signs of alcohol withdrawal. He does not have any complaints other than he would like to stop drinking. The patient understands that drinking will damage his liver. On the abdominal ultrasound his liver is enlarged, there is a sludge his gallbladder. His platelets are low. Patient probably has cirrhosis and low platelets secondary to it. HIDA scan was ordered previously to rule out acute cholecystitis. As for now patient does not have any symptoms of acute cholecystitis though we will cancel HIDA scan for now. Patient does have history of lipid alcohol withdrawals. We will monitor him in the hospital for signs of alcohol withdrawals and treat it accordingly. His sodium is low but stable. He does have paroxysmal atrial fibrillation. He should be on aspirin for stroke prevention. His lipase is mildly elevated. This is probably secondary to his recent alcohol intoxication. Exam Vital Signs Vital Sign - Last Date Time Temp Pulse Resp B/P Pulse Ox O2 Delivery O2 Flow Rate FiO2 01/10/17 15:52 36.9 88 16 138/97 98 Room Air Intake and Output 01/09/17 01/09/17 01/10/17 Cumulative From/Thru 15:00 23:00 07:00 01/08/17 20:30 - 01/10/17 06:41 Intake Total 480 ml 1144 ml 4304 ml Output Total 550 ml 1150 ml Balance -70 ml 1144 ml 3154 ml Intake Oral 480 ml 944 ml 3104 ml IV Total 200 ml 1200 ml Output Urine Total 550 ml 1150 ml # Voids 2 3 6 # Bowel Movements 1 1 Exam PHYSICAL EXAM: GENERAL: Alert, not in distress, cooperative HEAD: atraumatic, normocephalic, no bruises. EYES: CHITRA, EOMI, anicteric, able to fully open and close eyelids SKIN: Skin color normal, turgor normal. No visible rashes or lesions. EAR, NOSE, MOUTH, THROAT: Lips, oral mucosa, tongue gums, oropharynx are moist , pink, no lesions. Ears normal appearance, no lesions. NECK: no jugulovenous distention, no carotid bruits, carotid pulse normal contour, No carotid bruit, supple, no enlarged lymph nodes appreciated; ROM normal. RESPIRATORY: Lungs clear to auscultation. Good diaphragmatic excursion. Normal percussion sound. CARDIAC: normal S1 and S2; no rubs, murmurs, or gallops; regular rate and rhythm ABDOMEN: Abdomen soft, non-tender. BS normal. No masses or organomegaly. MUSCULOSKELETAL: ROM full, muscles are not tender EXTREMITIES: pitting edema in LE, no deformities, clubbing or skin discoloration. NEURO: Alert, oriented X 3, Sensation grossly intact., Cranial nerves II-XII intact, Grossly normal motor function. PULSES: 2+ radial, 2+ posterial tibial, 2+ dorsalis pedis, 2+ carotid REVIEW OF SYSTEMS: GENERAL: no malaise, no fevers., SEE HPI HEENT: Negative for frequent or significant headaches, No changes in hearing or vision, no nose bleeds or other nasal problems All other reviewed and negative other than HPI. IVs and Medications Medications Reviewed: Medications were reviewed in detail Lab and Diagnostics Result Diagram: 01/10/17 0501/10/17509 Microbiology Urine culture pending X-Rays, CTs and MRIs CT BRAIN WITHOUT CONTRAST IMPRESSION: No acute intracranial abnormalities after fall. Dictated by: Bharath Fairchild M.D. on 01/08/2017 at 19:27 Approved by: Bharath Fairchild M.D. on 01/08/2017 at 19:30 . 12-lead ECG Initial ECG Afib rate 110, no acute ST changes Cardiac Echo Impressions Interpretation Summary The left ventricle is normal in size. Left ventricular systolic function is low normal. The ejection fraction is estimated to be 50-55%. There are no focal wall motion abnormalities. The right ventricle is normal in size and function. Pulmonary artery pressures cannot be estimated because of the lack of a measurable TR jet velocity. Both atria are normal in size. There is mild mitral regurgitation. There is no other significant valvular heart disease. The ascending aorta is mildly enlarged. Assessment & Plan aClvin Luque is a 51 year old man with a PMH of HTN, and alcoholism with prior withdrawal seizures 1 year ago who presents acutely intoxicated seeking medically assisted withdrawal. Recent history is significant for a GLF on resulting in a laceration requiring 4 rika. In the ED lab evaluation reveals acutely elevated transaminitis with elevated Alk Phos in a Hepatocellular pattern consistent with alcoholic Hepatitis MELD and Discriminate Function. Hospital day #2. 1. 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 Liver cirrhosis. - not under control -Patient MELD 22 confers estimated 6% month mortality, Discriminate Function 26.6 does not indicate need for glucocorticoids -Banana bag given in the ED, continue thiamine supplementation -RUQ US of Liver which did show some sludge and borderline thickening. He is also noted to have direct hyperbilirubinemia. -Patient with multiple ED visits for outpatient Benzo assisted alcohol detoxification, all of these attempts have ultimately proved fruitless with sporadic non-sustained periods of sobriety; patient would likely benefit from a more intensive detoxification and rehabilitation process 2. Elevated Lactic Acid - AG and bicarbonate normal now - Lactic acid stable, in 3-4.7 range, probably related to his recent alcohol binge - no signs of infection, no pain or fever - will hold antibiotics for now, c/w IVF, monitor 3. Acute alcohol intoxication with history of withdrawal seizures, present on admission, acute on chronic. Active - improved -Patient expressing a desire to undergo inpatient detox -Reported history of withdrawal seizures during prior detox -Blood alcohol 326 on admit with last drink 30 minutes prior to presentation(14: 00 on 01/08/17) -CIWA protocol with Valium -Case management referral for discussion of extended inpatient rehabilitation 4 Pancytopenia, not present on admission, - WBC improved 5. Afib with RVR, paroxysmal -Patient is not aware of any previous diagnosis of Afib -His last 2 ER visits for EtOH withdrawal he was markedly tachycardic but there is no record of ECG for those visits -Patient borderline Hypotensive upon presentation -Given single dose of Diltiazem in ED which brought rate down to 110-120 range, will consider further dosing should the rate increase again -ECHO unremarkable - start PO ASA for CVA proph, Metoprolol bid 6. Hyponatremia, - stable - monitor 7. Scalp Laceration, present on admission, acute. Active -[place] appear patent and wound does not exhibit any signs of active bleeding or infection -[place] inserted 01/04/17, will likely need to come out during this hospitalization 8. Mildly elevated Lipase, -Likely secondary to above alcoholism -Patient asymptomatic, likely sub clinical mild alcoholic pancreatitis -IVF and supportive care as above -Continue to encourage alcohol cessation Code Status: FULL CODE Disposition: Anticipate patient will be in the hospital for several more days as he is evaluated and treated for the above conditions. GI Prophylaxis: H2 joan VTE Prophylaxis: Other (Grossly elevated INR) Resuscitation Status: CPR: Attempt Resuscitation Time spent more than 35 min Reg Watts MD January 10, 2017 17:04 Resuscitation Status: CPR: Attempt Resuscitation Rge Watts MD January 10, 2017 17:04
[2017-01-10] MEDS: 0.9% Sodium Chloride 1,000 ML IV SCH (18:36)
[2017-01-11] VITALS (9 sets, daily range): BP systolic 136–153; BP diastolic 84–98; PULSE 71–93; RESP 15–20; O2SAT 96–99
--- NOTE | 2017-01-11 01:00 | NUR ---
Fluids/Pain Patient pleasant and cooperative with care. Denies any discomfort/symptoms from ETOH withdrawal. Last CIWA score= 2. Some complaints of generalized discomfort from laying in bed all day @ HS. Morphine 2mg IVP given with effective results. Resting with eyes closed upon reassessment. Continues to be resting with eyes closed with rounding. NS running @ 100 ml/hr, patient aware of MD orders to hold off on free drinking at this time r/t hyponatremia. States understanding.
[2017-01-11] MEDS: 0.9% Sodium Chloride 1,000 ML IV SCH (03:49)
[2017-01-11 08:51] LABS: Mean Corpuscular Hemoglobin 29.7 pg (27.0-35.0); Mean Corpuscular Volume 89.5 fL (81-100)
[2017-01-11 10:21] LABS: INR 1.1 ratio
[2017-01-11] MEDS: Heparin 5,000 Unit/mL Inj SUBQ SCH ×2 (11:10→20:30)
--- NOTE | 2017-01-11 13:18 | PROG NOTE ---
[address] [address] PROGRESS NOTE PATIENT: YAMILE PONCE : 1965 MR#: [id number] ADMIT: 01/08/2017 JOB ID: [id number] DATE: 01/11/2017 SUBJECTIVE: No complaints overnight. No problems with withdrawal this morning. OBJECTIVE: Vitals stable. Patient conversational, in good spirits. He has a plan to stay entirely sober as an outpatient. LABS: H and H is sufficiently stable. Platelets are a little low at 56. White count 3.9. INR 1.10. Bilirubin is up to 6.4. Creatinine is stable at 0.85. Lactate has normalized. 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 His type B lactic acidosis has resolved. He is not a candidate for prednisolone or pentoxifylline based on persistently low discriminant function. I would recommend continued thiamine supplementation and monitoring for withdrawal. I do expect that his bilirubin may continue to rise temporarily. I will continue to follow while inpatient.
--- NOTE | 2017-01-11 13:42 | PCM.PNMED ---
Subjective Date of Service January 11, 2017 Subjective Calvin Luque is a 51 year old man with a PMH of HTN, and alcoholism with prior withdrawal seizures 1 year ago who presents acutely intoxicated seeking medically assisted withdrawal. Now under treatment for alcoholic hepatitis and EtOH withdrawal. Hospital day #4. Overnight: No acute events. Today: The patient states he feels fine and denies any chest pain, abdominal pain, diarrhea, nausea, shortness of breath, cough, or fevers. He is concerned that he should not be sent out with a Librium taper once discharged as it made him too sedated last time. The remainder of the review of systems is negative otherwise. Exam Vital Signs Vital Sign - Last Date Time Temp Pulse Resp B/P Pulse Ox O2 Delivery O2 Flow Rate FiO2 01/11/17 11:07 36.9 72 16 153/92 99 Room Air Intake and Output 01/10/17 01/10/17 01/11/17 Cumulative From/Thru 15:00 23:00 07:00 01/08/17 20:30 - 01/11/17 06:51 Intake Total 369 ml 1440 ml 1061 ml 7174 ml Output Total 1150 ml Balance 369 ml 1440 ml 1061 ml 6024 ml Intake Oral 1440 ml 4544 ml IV Total 369 ml 1061 ml 2630 ml Output Urine Total 1150 ml # Voids 4 3 13 # Bowel Movements 2 3 Exam Gen: well-developed, well-nourished, in no acute distress, laying in a hospital bed. Head: Approx 3 cm laceration with [address], no erythema, active bleeding, or discharge Neck: Supple, non tender, no JVD, no thyromegaly HEENT: PERRL, EOMI, no scleral icterus, no conjunctival pallor, mucous membranes moist CV: RRR, no murmurs rubs or gallops Resp: Lungs CTA BL, no wheezing rales or rhonchi Abd: Soft, no tenderness to palpation, no rebound masses or guarding, Liver barely palpable below costal margin with deep inspiration Extr: no cyanosis clubbing or edema Neuro: No asterixis, no tremor, CN 2-12 grossly intact, no focal neurologic deficit Psych: Normal mood and affect. IVs and Medications Medications Reviewed: Medications were reviewed in detail Lab and Diagnostics Result Diagram: 01/11/1783201/11/17832 Microbiology Urine culture pending X-Rays, CTs and MRIs CT BRAIN WITHOUT CONTRAST IMPRESSION: No acute intracranial abnormalities after fall. Dictated by: Bharath Fairchild M.D. on 01/08/2017 at 19:27 Approved by: Bharath Fairchild M.D. on 01/08/2017 at 19:30 . 12-lead ECG Initial ECG Afib rate 110, no acute ST changes Cardiac Echo Impressions Interpretation Summary The left ventricle is normal in size. Left ventricular systolic function is low normal. The ejection fraction is estimated to be 50-55%. There are no focal wall motion abnormalities. The right ventricle is normal in size and function. Pulmonary artery pressures cannot be estimated because of the lack of a measurable TR jet velocity. Both atria are normal in size. There is mild mitral regurgitation. There is no other significant valvular heart disease. The ascending aorta is mildly enlarged. Assessment & Plan Calvin Luque is a 51 year old man with a PMH of HTN, and alcoholism with prior withdrawal seizures 1 year ago who presents acutely intoxicated seeking medically assisted withdrawal. Now under treatment for alcoholic hepatitis and EtOH withdrawal. Hospital day #4. 1. 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 Ongoing -Patient MELD 18 confers estimated 6% month mortality, Discriminate Function 3.2 -Banana bag given in the ED, continue thiamine supplementation -RUQ US of Liver which did show some sludge and borderline thickening. He is also noted to have direct hyperbilirubinemia. -LFTs improving. Bilirubin lagging behind which is expected. -Concern for possible cirrhosis. Spleen is normal in size however the patient is thrombocytopenic which suggests that his liver is not producing adequate amount of thrombopoietin. The patient also has hyponatremia which is concerning for cirrhosis. 2. Hyponatremia, present on admission, ongoing -Concerning for a marker of cirrhosis -Consider CT of abdomen to evaluate liver texture -Serum and urine osmolality, urine sodium. 3. Elevated Lactic Acid, likely type B, present on admission. - AG and bicarbonate normal now - Lactic acid stable, in 3-4.7 range, probably related to his recent alcohol binge - no signs of infection, no pain or fever - will hold antibiotics for now, c/w IVF, monitor 4. Acute alcohol intoxication with history of withdrawal seizures, present on admission, acute on chronic. Active. Improved. -Patient expressing a desire to undergo inpatient detox -Reported history of withdrawal seizures during prior detox -Blood alcohol 326 on admit with last drink 30 minutes prior to presentation (14 :00 on 01/08/17) -CICO protocol with Valium -Case management referral for discussion of extended inpatient rehabilitation 5 Pancytopenia, not present on admission, leukocytosis resolved. Anemia and thrombocytopenia continue. -Continue to monitor. 6. Afib with RVR, paroxysmal, likely [place] -Patient is not aware of any previous diagnosis of Afib -Given single dose of Diltiazem in ED which brought rate down to 110-120 range, will consider further dosing should the rate increase again -ECHO unremarkable -start PO ASA for CVA prophylaxis, Metoprolol bid for rhythm and rate control 7. Scalp Laceration, present on admission, acute. Active -[place] appear patent and wound does not exhibit any signs of active bleeding or infection -[place] inserted 01/04/17, will likely need to come out during this hospitalization 8. Mildly elevated Lipase, present on admission, resolved. -Likely secondary to above alcoholism -Patient asymptomatic, likely sub clinical mild alcoholic pancreatitis -Continue to encourage alcohol cessation Code Status: FULL CODE Disposition: Anticipate patient will be in the hospital for several more days as he is evaluated and treated for the above conditions. GI Prophylaxis: H2 joan VTE Prophylaxis: Other (Grossly elevated INR) Resuscitation Status: CPR: Attempt Resuscitation Time spent 35 min Attending Statement Patient was seen and examined by me today. I confirmed pertinent physical exam findings and agree with physical exam as documented. I agree with overall assessment and plan of care as documented. Labs, radiology tests reviewed. Plan of care, medication side effects, home medication, diagnostic procedures and available alternatives were discussed and reviewed with the patient. All questions answered. Patient verbalized understanding, approved and agreed to plan of care. Sameera Noel DO January 11, 2017 13:22 Reg Watts MD January 11, 2017 19:04
--- NOTE | 2017-01-11 18:39 | NUR ---
Tele/CIWA No reports of chest pain/pressure/discomfort. Tele SR 70s-80s with peaked T wave. Distal pulses strong and palpable. No edema. No reports of SOB/dizziness. SPO2 high 90s on RA. Denies cough. No reports of n/v/d/c or abdominal pain. Voiding without complication. Patient is alert and oriented x3, BLANC, reports full sensation, states he feels "a little weak" --mildly anxious at times. CIWA score of 2.
[2017-01-11 20:32] LABS: OSMOLALITY, URINE 312 mOs/kH2O (250-1200)
--- NOTE | 2017-01-11 23:11 | NUR ---
AISLINN, Activity: CIWA zero at HS, pt reports "feeling good", denies anxiety at this time. Took a walk with family around the unit. States he feels ready to go home tomorrow and will discuss further discharge plans with the doctor tomorrow.
[2017-01-12 00:10] VITALS: BP 146/85; PULSE 73; RESP 20; O2SAT 97
--- NOTE | 2017-01-12 00:21 | NUR ---
V tach: Pt just had 14 beats of V tach. Had just been woken a few minutes earlier for VS, assymptomatic when talking to pt. Event and lab levels just paged to hospitalist. Addendum: 01/12/17 at 0318 by CHARMAINE THOMAS RN Morning labs ordered.
[2017-01-12 03:24] LABS: Mean Corpuscular Hemoglobin 29.9 pg (27.0-35.0); Mean Corpuscular Volume 88.1 fL (81-100)
[2017-01-12 05:55] VITALS: BP 132/81; PULSE 64; RESP 20; O2SAT 96
[2017-01-12 08:00] VITALS: BP 155/91; PULSE 73; RESP 18; O2SAT 99
[2017-01-12] MEDS: Heparin 5,000 Unit/mL Inj SUBQ SCH (09:04)
[2017-01-12] MEDS ORDERED: ALPR1TAB PO (10:17)
[2017-01-12] MEDS ORDERED: ASPI81TA3 PO (10:17)
[2017-01-12] MEDS ORDERED: Thiamine PO (10:17)
[2017-01-12] MEDS ORDERED: FOLI1TAB18 PO (10:17)
--- NOTE | 2017-01-12 10:20 | PCM.DIMED ---
Sameera Noel DO 01/12/17 1020: Discharge Instructions Date of Service January 12, 2017 Dates of Hospitalization January 08, 2017 at 21:46 Discharge Diagnosis Discharge Diagnosis 1. 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 Ongoing 2. Hyponatremia, present on admission, ongoing 3. Elevated Lactic Acid, likely type B, present on admission. 4. Acute alcohol intoxication with history of withdrawal seizures, present on admission, acute on chronic. Active. Improved. 5 Pancytopenia, not present on admission, leukocytosis resolved. Anemia and thrombocytopenia continue. 6. Afib with RVR, paroxysmal, likely [place] 7. Scalp Laceration, present on admission, acute. Active 8. Mildly elevated Lipase, present on admission, resolved. Diet Low fat, Low Sodium Activity Limited until seen by PCP Call your provider Fever or Chills, Other (seizure) Patient Instructions Please continue to avoid alcohol. Please follow up with your PCP in 1 week. Please continue going to AA. You were started on Aspirin. Please continue to take it daily. Please take the vitamins that were prescribed to you. You will be given a short supply of Xanax. Follow up with your PCP to discuss need for further refill. Follow-up Provider: Quyen Vicente MD Follow-up with PCP in: 1 week Reg Watts MD 01/12/17 1220: Sameera Noel DO January 12, 2017 10:20 Reg Watts MD January 12, 2017 12:20
--- NOTE | 2017-01-12 11:29 | NUR ---
Social Work Note: Discharge Data& Assessment: EMR reviewed. Per pt is medically ready to discharge home via POV. Calvin Luque is a 51 year old male admitted on 01/08/2017 for alcoholic hepatitis and AFIB with RVR. Per pt is medically improved and ready to discharge. Pt did meet with [facility] Staff at bedside during this hospital admission and accepted resources. SW met with pt at bedside to confirm discharge plan and assess for any unmet needs. Pt denied any other needs. No other discharge needs identified. Plan: Per pt is medically ready to discharge home via POV. Pt denied any other needs. No other discharge needs identified. SUMEET Lares
--- NOTE | 2017-01-12 12:21 | PCM.DC.MED ---
Discharge Summary Date of Service January 12, 2017 Dates of Hospitalization Date of Hospital Admission January 08, 2017 at 21:46 Date of Discharge: January 12, 2017 Providers: Admitting Physician: Gina Rodriguez DO Primary Care Physician: Quyen Vicente MD Attending Physician: Gina Rodriguez DO Diagnosis at Time of Discharge Diagnosis at Time of Discharge 1. 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 Possible Hemochromatosis 2. Hyponatremia 3. Elevated Lactic Acid, likely type B 4. Acute alcohol intoxication with history of withdrawal seizures, 5 Leukopenia - probably lab error 6. Afib with RVR, paroxysmal, likely [facility] 7. Scalp Laceration, present on admission, acute. Active 8. Mildly elevated Lipase Consultations Gastroenterology Procedures XRay, CTs & MRIs CT BRAIN WITHOUT CONTRAST IMPRESSION: No acute intracranial abnormalities after fall. Dictated by: Bharath Fairchild M.D. on 01/08/2017 at 19:27 Approved by: Bharath Fairchild M.D. on 01/08/2017 at 19:30 . ECG 12 Lead Initial ECG Afib rate 110, no acute ST changes Cardiac Echo Impression Interpretation Summary The left ventricle is normal in size. Left ventricular systolic function is low normal. The ejection fraction is estimated to be 50-55%. There are no focal wall motion abnormalities. The right ventricle is normal in size and function. Pulmonary artery pressures cannot be estimated because of the lack of a measurable TR jet velocity. Both atria are normal in size. There is mild mitral regurgitation. There is no other significant valvular heart disease. The ascending aorta is mildly enlarged. Other Diagnostics US RUQ Large amount of gallbladder sludge with borderline gallbladder wall thickening, and mildly distended appearance. No other sonographic criteria for acute cholecystitis however the bile ducts are not well seen due to body habitus/ bowel gas. Therefore, please correlate clinically and with LFTs. Enlarged, echogenic liver suggesting diffuse hepatocellular disease/fatty infiltration. Hospital Course This is a 51-year-old man with past medical history of hypertension, alcoholism , withdrawal seizures. He presented to the hospital acutely intoxicated, drunk , seeking medically assisted withdrawal. On admission his liver enzymes were elevated, lactate was elevated probably secondary to his drinking habits and acute hepatitis. [facility] [employer] was consulted. Patient had right upper quadrant ultrasound which showed large amount of gallbladder sludge with borderline gallbladder wall thickening, and mildly distended appearance, Enlarged, echogenic liver suggesting diffuse hepatocellular disease/fatty infiltration. Initially HIDA scan was considered, but patient did not have any symptoms of acute cholecystitis/pain, his liver enzymes were stable, so HIDA scan was canceled. One of his CBCs were positive for leukopenia, which improved on the next day, so probably it was a lab error. Patient does have thrombocytopenia. Ferritine was elevated 2443, iron was normal , TIBC low, % Iron Sat was high > 85, liver enzymes were elevated. Patient might have hemochromatosis + liver injury from alcohol. I discussed these findings with the patient and emphasized the need for further evaluation and monitoring of his liver function. Patient may need liver biopsy. I also emphasized that he must stop drinking. Overall his liver function is poor, his albumin is around 2.5, INR on admission was 1.39, PT 15. On discharge his INR was 1.1 and PT 11.8. Elevated lactic acid was also secondary to heavy alcohol consumption and liver disease. Patient assured me that he would follow-up with his primary care doctor for further elevation of his liver disease. While in the hospital patient was diagnosed with paroxysmal atrial fibrillation. Echo was done and showed The left ventricle is normal in size. Left ventricular systolic function is low normal. The ejection raction is estimated to be 50-55%. There are no focal wall motion abnormalities. Start the patient on metoprolol 12.5 twice a day, he converted back to normal sinus rhythm. Patient's blood pressure was on the higher side, so metoprolol should help this as well. I expect once we stopped IV fluids his blood pressure will get better in couple of days. Patient was started on aspirin for stroke prophylaxis. I discussed his heart problem with the patient, and the need to take his medications and follow up with his primary doctor for further guidance. I called in prescription for metoprolol to [facility] pharmacy #[id number] at [address] [facility]. I informed the patient that he should picker tender this prescription at the pharmacy. Patient also had hyponatremia which was also probably secondary to his drinking habits. When patient improved he asked me to discharge him home. He was discharged home with recommendation to follow up with his PCP for further management of his medical problems. Patient Condition @ Discharge: good Discharge Disposition: home Discharge Activity: resume regular activity Driving: Patient was strongly advised against driving when under influence of alcohol, pain meds or other medication that can cause sedation or decreased reaction. Patient was strongly advised that he must not drink, drive, operative heavy machinery or do anything that requires precise judgement or dexterity within 12 hours of taking the controlled medication that was prescribed to him. Patient was aware that benzodiasepines are very addictive medications and may cause psychological or physical addiction. Discharge Diet: regular diet, heart healthy, low fat, low salt, high fiber Information Provided to Patient: information about discharge medications Discharge Medications: I discussed with patient medication dosage, usage, goals of therapy, side effects, alternatives. During discharge patient was allert, oriented, able to make own informed decisions. We discussed possible severe side effects, adverse reactions, benefits, risks, alternatives of current and newly prescribed medications and diagnostic procedures, plan of care and discharge. Patient verbalized understanding and agreed to current plan of care and discharge. TIME SPENT IN DISCHARGE ACTIVITY: Face to face activity greater then 30 minutes spent in discharge activity. 1. Discussed with patient re: discharge plan of care/treatment, and follow up care/services. 2. Patient agreed with discharge plan and further plan of care, all questions were answered/addressed, no further questions at the time of discharge. Exam Vital Signs (Last) Date Time Temp Pulse Resp B/P Pulse Ox O2 Delivery O2 Flow Rate FiO2 01/12/17 08:00 37.3 73 18 155/91 99 Room Air Exam Patient was seen and examined on the day of discharge Test 01/08/17 18:55 01/08/17 19:25 01/08/17 19:32 01/08/17 20:15 Alcohols 328mg/dL (0-10) Activated Partial Thromboplast Time 31.8sec (22.8-33.0) Hold Red Top Tube Received (Received) Hold Bland Top Tube Received (Received) Hold Kim Top Tube Received (Received) Urine Color Yellow (YELLOW) Urine Appearance Clear (CLEAR,HAZY) Urine pH 5.5 (5.0-8.0) Urine Specific [place] 1.004 (1.003-1.035) Urine Protein Negativemg/dL (NEG,TRACE) Urine Glucose (UA) Negativemg/dL (NEGATIVE) Urine Ketones Negativemg/dL (NEGATIVE) Urine Occult Blood Negative (NEGATIVE) Urine Nitrite Negative (NEGATIVE) Urine Bilirubin Negative (NEGATIVE) Urine Urobilinogen Normalmg/dL (NORMAL) Urine Leukocyte Esterase Negative (NEGATIVE) Urine RBC 0-2/hpf (0-2) Urine WBC 0-5/hpf (0-5) Urine Epithelial Cells Occasional/hpf (NONE-MOD) Urine Crystals None seen (NONE SEEN) Urine Bacteria None/hpf (NONE-FEW) Urine Hyaline Casts None/lpf (NONE) Urine Granular Casts None seen (NONE SEEN) Urine Waxy Casts None seen (NONE SEEN) Urine Red Blood Cell Casts None seen (NONE SEEN) Urine White Blood Cell Casts None seen (NONE SEEN) Urine Mucus None seen (None Seen) Urine Trichomonas None seen (NONE SEEN) Urine Yeast None (NONE SEEN) Urinalysis Comment Test 01/08/17 20:46 01/09/17 04:45 01/09/17 12:25 01/09/17 16:50 Ammonia 17ug/dL (18-53) Triglycerides Level 2463mg/dL (0-149) Cholesterol Level 319mg/dL (100-199) LDL Cholesterol, Calculated mg/dL (0-99) VLDL Cholesterol mg/dL HDL Cholesterol 11mg/dL (>39) Cholesterol/HDL Ratio 29.00 (0.0-4.4) Lipase 60U/L (13-60) Hepatitis A IgM Antibody Negative (Negative) Hepatitis B Surface Antigen Negative (Negative) Hepatitis B Core IgM Antibody Negative (Negative) Hepatitis C Antibody <0.1s/co ratio (0.0-0.9) Hepatitis C Comment Comment (.) Gamma Glutamyl Transpeptidase 3604IU/L (0-65) Reticulocyte Count,Calculated 0.5% (0.6-2.6) Hematology Comments Iron Level 92ug/dL (35-150) Total Iron Binding Capacity 109ug/dL (250-450) Percent Iron Saturation > 85%sat (15-50) Unsaturated Iron Binding < 16.8ug/dL Ferritin 2443ng/mL (30-400) Lactate Dehydrogenase 519U/L (100-190) Test 01/09/17 17:30 01/10/17 05:10 01/11/17 08:33 01/11/17 09:56 Haptoglobin 41mg/dL (34-200) Vitamin B12 Level 1292pg/mL (211-946) Folate > 19.9ng/mL (>3.0) Neutrophils (%) (Auto) 51.2% (40-74) Lymphocytes (%) (Auto) 40.4% (14-46) Monocytes (%) (Auto) 7.8% (4-12) Eosinophils (%) (Auto) 0.2% (0-5) Basophils (%) (Auto) 0.2% (0-3) Phosphorus Level 3.0mg/dL (2.5-4.9) Osmolality 275 (275-300) Lactic Acid Level 2.0mmol/L (0.4-2.0) Prothrombin Time 11.8sec (8.1-12.5) Prothromb Time International Ratio 1.10ratio Test 01/11/17 19:15 01/12/17 03:15 Urine Osmolality 312mOs/kH2O (250-1200) Urine Random Sodium 97mEq/L Hold Urine Received (Received) White Blood Count 4.9th/mm3 (3.8-10.1) Red Blood Count 3.61mil/mm3 (4.40-5.80) Hemoglobin 10.8g/dL (13.8-17.2) Hematocrit 31.8% (41.0-50.0) Mean Corpuscular Volume 88.1fL (81-100) Mean Corpuscular Hemoglobin 29.9pg (27.0-35.0) Mean Corpuscular Hemoglobin Concent 34.0% (32.0-37.0) Red Cell Distribution Width 18.0% (12.3-15.4) Platelet Count 75bil/L (150-400) Sodium Level 133mEq/L (134-144) Potassium Level 3.9mEq/L (3.5-5.2) Chloride Level 96mEq/L (97-108) Carbon Dioxide Level 24mmol/L (18-29) Blood Urea Nitrogen 4mg/dL (6-24) Creatinine 0.73mg/dL (0.76-1.27) Estimat Glomerular Filtration Rate 119mL/min (>59) Glucose Level 97mg/dL (60-99) Calcium Level 8.2mg/dL (8.5-10.1) Magnesium Level 1.7mg/dL (1.6-2.6) Total Bilirubin 6.2mg/dL (0.0-1.2) Direct Bilirubin 4.8mg/dL (0.0-0.3) Aspartate Amino Transf (AST/SGOT) 288U/L (0-50) Alanine Aminotransferase (ALT/SGPT) 153U/L (0-44) Alkaline Phosphatase 280U/L (25-150) Total Protein 4.7g/dL (6.4-8.4) Albumin 2.5g/dL (3.4-5.0) Microbiology Results Urine culture pending Discharge Medications Discharge Medications ([Thiamine]) 100 MG TABLET 100 MG PO DAILY Prescribed by: RISSA FLORES DO Alprazolam ER (Xanax XR) 1 Mg Tab.er.24h 1 MG PO DAILY Prescribed by: RISSA FLORES DO Aspirin Chew (Aspirin Chew) 81 Mg Chew 81 MG PO DAILY Prescribed by: RISSA FLORES DO Folic Acid (Folic Acid) 1 Mg Tablet 1 MG PO DAILY Prescribed by: RISSA FLORES DO As needed Ibuprofen (Ibuprofen) 200 Mg Capsule 800 MG PO QID PRN PRN For Pain (Reported) Lisinopril (Lisinopril) 20 Mg Tablet 20 MG PO QAM PRN PRN HYPERTENSION W/ WITHDRAWAL (Reported) Followup Plan Discharge Diet: Low fat, Low Sodium Discharge Activity: Limited until seen by PCP Patient Instructions Please continue to avoid alcohol. Please follow up with your PCP in 1 week. Please continue going to AA. You were started on Aspirin. Please continue to take it daily. Please take the vitamins that were prescribed to you. You will be given a short supply of Xanax. Follow up with your PCP to discuss need for further refill. Follow-up Provider: Quyen Vicente MD Follow-up with PCP in: 1 week Reg Watts MD January 12, 2017 12:21 Reg Watts MD January 12, 2017 12:21 As needed Ibuprofen (Ibuprofen) 200 Mg Capsule 800 MG PO QID PRN PRN For Pain (Reported) Lisinopril (Lisinopril) 20 Mg Tablet 20 MG PO QAM PRN PRN HYPERTENSION W/ WITHDRAWAL (Reported) Followup Plan Discharge Diet: Low fat, Low Sodium Discharge Activity: Limited until seen by PCP Patient Instructions Please continue to avoid alcohol. Please follow up with your PCP in 1 week. Please continue going to AA. You were started on Aspirin. Please continue to take it daily. Please take the vitamins that were prescribed to you. You will be given a short supply of Xanax. Follow up with your PCP to discuss need for further refill. Follow-up Provider: Quyen Vicente MD Follow-up with PCP in: 1 week Reg Watts MD January 12, 2017 12:21
--- NOTE | 2017-01-12 12:48 | NUR ---
discharge Pt discharged to home. Transportation provided by his girlfriend. Pt's IV's dc'd intact, telemetry discontinued and tech notified. Pt follow up appts, new medications and discharge instructions were reviewed. All questions were answered and pt voiced understanding. Pt's belongings were gathered to be sent home with pt. Pt was escorted off unit by KARLA
== END 2017-01-12 11:55 | disposition home or self-care (01) | DRG 433 ==
LOC: SED 18:15 → MPC 21:46 → PCC 22:13
PROVIDERS: ADMIT Internal Medicine; ATTEND Internal Medicine
DX: K70.10 Alcoholic hepatitis without ascites (principal); E87.1 Hypo-osmolality and hyponatremia; E87.2 Acidosis; F10.229 Alcohol dependence with intoxication, unspecified; T51.0X1A Toxic effect of ethanol, accidental (unintentional), initial encounter; S01.01XD Laceration without foreign body of scalp, subsequent encounter; I48.91 Unspecified atrial fibrillation; D64.9 Anemia, unspecified; D69.59 Other secondary thrombocytopenia; E83.119 Hemochromatosis, unspecified; Y90.8 Blood alcohol level of 240 mg/100 ml or more

== ENCOUNTER 2017-01-14 13:43 | Emergency (ER) | payer OTHER ==
[~2017-01-14] VITALS: Ht 190.5 cm; Wt 113.6 kg
[~2017-01-14 13:43] MED LIST changes: +ALPR1TAB PO; +ASPI81TA3 PO; +FOLI1TAB18 PO; +IBUP200C PO; -LORA-305 PO; -LORA1TAB PO; -ONDA4TAB12 PO; -ONDA8TAB10 PO; +Thiamine PO
[2017-01-14 13:45] VITALS: BP 155/98; PULSE 84; RESP 19; O2SAT 96
--- NOTE | 2017-01-14 13:49 | ED.REPORT ---
HPI-General Illness Date of Service January 14, 2017 ED Provider: Dr. Arguello The patient is a 51 year old male w/ a hx of alcoholism and HTN who presents to the ED to have 4 scalp rika removed. The pt was seen at [facility] 6 days ago after falling while intoxicated and hitting his head, he received the rika at the time. The pt is sober, alert, and awake. He reports that he went to an AA meeting yesterday and is excited to pursue sobriety. Nursing Notes Stated Complaint: STAPLE REMOVAL Chief Complaint: Staple/Suture Removal Nursing Notes Reviewed: Yes Allergies: Coded Allergies: No Known Allergies (Unverified , 04/03/16) Scheduled ([Thiamine]) 100 MG TABLET 100 MG PO DAILY Alprazolam ER (Xanax XR) 1 Mg Tab.er.24h 1 MG PO DAILY Aspirin Chew (Aspirin Chew) 81 Mg Chew 81 MG PO DAILY Folic Acid (Folic Acid) 1 Mg Tablet 1 MG PO DAILY Scheduled PRN Ibuprofen (Ibuprofen) 200 Mg Capsule 800 MG PO QID PRN PRN For Pain Lisinopril (Lisinopril) 20 Mg Tablet 20 MG PO QAM PRN PRN HYPERTENSION W/ WITHDRAWAL General Time Seen by MD: 13:49 Chief Complaint Other (staple removal) Hx Obtained From: Patient Arrived By: Walk-in Sudden in Onset?: Yes Onset Occurred: 6 days ago Symptom Duration: Since onset Caused by: Accidental, Fall on ground Location: : Head Severity: Current: No pain currently Recent Healthcare: Recent doctor visit, Recent hospitalization Similar Sx Previous: Yes Past Medical History Past Medical History Notes: Seen in ED 04/03, 04/08 for ETOH (discharged to home, no [facility] hospitalizations, hx of sx x1 years ago, none since) Two ED visits for ETOH in March 2016 Past Medical History Hx of alcohol abuse Reports: Hypertension Past Surgical History Hernia surgery Family History Noncontributory Smoking History Never Smoker Social History Currently residing with his girlfriend. 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 Physical Exam Vital Signs Vital Signs Date Time Temp Pulse Resp B/P Pulse Ox O2 Delivery O2 Flow Rate FiO2 01/14/17 13:45 36.2 84 19 155/98 96 Room Air Initial VS: Reviewed ENT: Mucous membranes moist Neck: Supple, Non-tender Respiratory: Breath sounds normal, Clear to auscultation Cardiovascular: Regular rate & rhythm, Heart sounds normal Abdomen / GI: Soft, Non-tender, No guarding, No rebound, No distention Back: No CVA tenderness Extremities: Vascular intact, Neuro intact, No swelling, No tenderness Skin: Warm, Dry General/Constitutional: Awake, Alert, No acute distress, Well appearing, Well developed, Well hydrated, Cooperative, Not toxic appearing Head / Eyes: Normocephalic 4 scalp rika Re-Eval/Medical Decision Med Decision/Clinical Course 51-year-old male history of alcohol abuse recently discharged for alcoholic hepatitis presenting for staple removal. He was recently discharged the hospital on steroids. He is feeling much better. He has been going to . His rika appear well. I removed them. He is discharged home with follow-up with his primary doctor. Time of Eval: 13:59 Patient Status: Condition improved Re-Evaluation/Progress Note: Pt has stitches removed. Tolerated procedure well. Plan for discharge. Counseled Regarding: Diagnosis, Lab results, Need for follow-up, When/why to return to ED Discharge & Departure Primary Impression: Visit for wound care Disposition: Home Discharge Condition All VS Reviewed: Yes Condition: Stable Patient Instructions: Acute Wound Care (GEN) Additional Instructions: I have attached a referral to a primary care physician that you can see for follow up. Return to the Emergency Department for any new or worsening symptoms. Congratulations or your sobriety, keep it up one day at a time :) Referrals: Quyen Vicente MD (PCP) [facility] Scribe Attestation Portion of this note were transcribed by Alisia Dunlap. I, Dr. Arguello, personally performed the history, physical exam, and medical decision-making: I reviewed and confirmed the accuracy for the information in the transcribed note. Signed by: franki Gregg, 01/14/17 1500 copies to: Quyen Vicente MD; [facility] Sen Arguello MD January 14, 2017 13:49 Alisia Dunlap January 14, 2017 14:00
== END 2017-01-14 14:13 | disposition home or self-care (01) ==
LOC: SED 13:43
DX: S01.00XD Unspecified open wound of scalp, subsequent encounter (principal)

== ENCOUNTER 2017-05-15 05:40 | Emergency (ER) | payer OTHER ==
[~2017-05-15] VITALS: Ht 190.5 cm; Wt 109.1 kg
[2017-05-15 05:45] VITALS: BP 212/114; PULSE 122; RESP 18; O2SAT 99
--- NOTE | 2017-05-15 06:24 | ED.REPORT ---
HPI-Overdose/Alcohol Toxicity Date of Service May 15, 2017 ED Provider: Tank Roper MD Pt is a 51 year old male with a history of alcoholic hepatitis, alcohol-related seizures, acute afib from alcohol use, and hypertension who presents to the ED for alcohol withdrawal. Pt was hospitalized on 01/08/17 for alcoholic hepatitis, and was sober since then until two weeks ago. He states that his last drink was last night around 1999, and he has been drinking daily for the last two weeks. Pt wants to get treatment for alcohol detox so he can go back to work. Additional symptoms include anxiety and shakes from alcohol use. He denies hematuria, hematochezia, bloody stools, or any recent infections. He was placed on metoprolol in the hospital on 01/08/17, and denies taking it now. Nursing Notes Stated Complaint: ALCOHOL WITHDRAWAL Chief Complaint: Substance Abuse Nursing Notes Reviewed: Yes ([employer], [employer] not reconciled) Allergies: Coded Allergies: No Known Allergies (Unverified , 05/15/17) Scheduled ([Thiamine]) 100 MG TABLET 100 MG PO DAILY Alprazolam ER (Xanax XR) 1 Mg Tab.er.24h 1 MG PO DAILY Aspirin Chew (Aspirin Chew) 81 Mg Chew 81 MG PO DAILY Folic Acid (Folic Acid) 1 Mg Tablet 1 MG PO DAILY Scheduled PRN Ibuprofen (Ibuprofen) 200 Mg Capsule 800 MG PO QID PRN PRN For Pain Lisinopril (Lisinopril) 20 Mg Tablet 20 MG PO QAM PRN PRN HYPERTENSION W/ WITHDRAWAL General Time Seen by Provider: 06:08 Chief Complaint Other (Alcohol withdrawal) Hx Obtained From: Patient Arrived By: Walk-in Onset Occurred: More than a week ago... (2 weeks) Additional Notes: Anxiety and shaking from alcohol use Pertinent Negative: Pt denies other symptoms Related History: Reports: Alcoholism, EtOH withdrawal Recent Healthcare: No recent doctor visit, No recent hospitalization Similar Sx Previous: Yes Risk-Overdose/Alcohol Tox )( Suicide Risk Stratification RF Statements: Risk factors reviewed Past Medical History Past Medical History Notes: Last admit for ETOH 12/2016 Echocardiogram December 2016, EF 55%, no focal wall motion abnormalities Past Medical History Hx of alcohol abuse Review of alcoholic hepatitis History of atrial fibrillation with RVR-paroxysmal, thought to be holiday heart per hospital note 12/2016 History of thrombocytopenia History of grand mal seizure from alcohol use 6 years ago on 05/15/17 Reports: Hypertension Past Surgical History Hernia surgery Family History Noncontributory Smoking History Never Smoker Social History Currently residing with his girlfriend. 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 Male: Denies Hematuria Physical Exam Initial Vital Signs Vital Signs (First) Date Time Temp Pulse Resp B/P Pulse Ox O2 Delivery O2 Flow Rate FiO2 05/15/17 05:45 36.7 122 18 212/114 99 Room Air Initial VS: Reviewed, Vital signs abnormal Head / Eyes: Atraumatic, Normocephalic ENT: Mucous membranes moist, Conjunctiva normal Extremities: Vascular intact, Neuro intact, No swelling, No tenderness General/Constitutional: Awake, Alert Answering questions appropriately Respiratory / Chest: Atraumatic, Breath sounds NL, Breath sounds = bilat, No respiratory distress Cardiovascular: Heart rate NL, No murmurs Mildly tachycardic No edema Abdomen: Soft, Non-tender No gross ascites No caput medusae Neurologic: Oriented X3, Speech NL Psychiatric: Affect NL, Mood NL, Judgment/insight NL, Thought content NL Abnormal Mood/Affect: Positive: Anxious Adequate insite No severe withdrawal Skin: Warm, Dry No jaundice Interpretation & Diagnostics Lab Results Interpretation Result Diagram: 05/15/17 0637 05/15/17 0637 Test 05/15/17 05:58 05/15/17 06:37 Hold Urine Received (Received) White Blood Count 8.2th/mm3 (3.8-10.1) Red Blood Count 5.22mil/mm3 (4.40-5.80) Hemoglobin 15.0g/dL (13.8-17.2) Hematocrit 42.7% (41.0-50.0) Mean Corpuscular Volume 81.8fL (81-100) Mean Corpuscular Hemoglobin 28.7pg (27.0-35.0) Mean Corpuscular Hemoglobin Concent 35.1% (32.0-37.0) Red Cell Distribution Width 14.5% (12.3-15.4) Platelet Count 128bil/L (150-400) Neutrophils (%) (Auto) 68.6% (40-74) Lymphocytes (%) (Auto) 20.8% (14-46) Monocytes (%) (Auto) 9.6% (4-12) Eosinophils (%) (Auto) 0.6% (0-5) Basophils (%) (Auto) 0.2% (0-3) Prothrombin Time 10.6sec (8.1-12.5) Prothromb Time International Ratio 0.99ratio Sodium Level 138mEq/L (134-144) Potassium Level 4.5mEq/L (3.5-5.2) Chloride Level 98mEq/L (97-108) Carbon Dioxide Level 24mmol/L (18-29) Blood Urea Nitrogen 14mg/dL (6-24) Creatinine 0.98mg/dL (0.76-1.27) Estimat Glomerular Filtration Rate 85mL/min (>59) Glucose Level 130mg/dL (60-99) Calcium Level 9.1mg/dL (8.5-10.1) Total Bilirubin 0.8mg/dL (0.0-1.2) Aspartate Amino Transf (AST/SGOT) 51U/L (0-50) Alanine Aminotransferase (ALT/SGPT) 50U/L (0-44) Alkaline Phosphatase 75U/L (25-150) Total Protein 7.3g/dL (6.4-8.4) Albumin 4.3g/dL (3.4-5.0) Thyroid Stimulating Hormone (TSH) 1.250uIU/mL (0.450-4.500) Alcohols < 10mg/dL (0-10) Lab Results Interpretation: CBC normal-previous thrombocytopenia has resolved CMP normal Alcohol 0 ECG Interpretation ECG Interpretation: Sinus tachycardia, rate 103 Previous afib resolved No acute ischemic changes Non-specific intraventricular delay previously, resolved Time: 06:47 Interpreted by: ED physician Re-Eval/Medical Decision Med Decision/Clinical Course This is a pleasant 51-year-old male alcoholic who reports been sober for 3 months, but started jerking in 2 weeks ago, wants to stop and reports he gets mild withdrawal and came in requesting some assistance. He does not think he needs go to crisis, does not think he requires hospitalization but some medications to help at home to prevent withdrawal from worsening. Reports 6 years ago he did have severe withdrawal seizure, he's had a hospitalization in December for alcoholism but is again had been sober up until 2 weeks ago from discharge. He did have episodes of paroxysmal atrial fibrillation which was associated with his alcoholism, but reports he's had no problems since. He is no longer on the metoprolol and does not like the beta-blockade, and he notes that when he is not drinking he has normally a low heart rate. The patient does not appear clinically intoxicated, he is in mild withdrawal mildly tachycardic-but is mentating and interacting normally. He responded very well to treatment in the department. He personally thinks Xanax has worked best for him for withdrawal, a discussion with him he is amenable to lorazepam. Labs were obtained, and are actually improved and that is previously identified thrombocytopenia has now resolved. He's currently in sinus rhythm. At this point I think the patient is a reasonable for discharge home on a standard taper of lorazepam. Source of Hx: Old records Re-Evaluation/Progress : Time of Eval: 08:58 Patient Status: Condition improved Re-Evaluation/Progress Note: Patient rechecked. Discussed plan for discharge. Patient understands and agrees with plan. F/U instructions and RTER warnings given. All questions addressed at this time. Differential Diagnosis: Positive: Alcohol abuse, Negative: Intoxication, alcohol, Intoxication, other drug, Overdose, accidental, Overdose, other, Schizophrenia, Suicidal attempt, Suicidal gesture Counseled Regarding: Diagnosis, Lab results, Need for follow-up, When/why to return to ED Discharge & Departure Impression: Primary Impression: Alcohol withdrawal Complication of substance-induced condition: uncomplicated Qualified Code: F10.230 - Alcohol dependence with withdrawal, uncomplicated Discharge Condition All VS Reviewed: Yes Condition: Stable Additional Instructions: 1. Continue to work on maintaining sobriety. 2. Take the lorazepam (Ativan) taper as prescribed (see instruction sheet). This is the same medicine at Xanax but has a longer half life. Please note this medication does cause some drowsiness, no driving after taking. 3. Return to the emergency department if new or worsening symptoms. Referrals: Quyen Vicente MD (PCP) Scribe Attestation Portions of this note were transcribed by Whit Hdez. I, Dr. Roper, personally performed the history, physical exam and medical decision-making; I reviewed and confirmed the accuracy of the information in the transcribed note. Signed by: Roger Edwards, 05/15/17. copies to: Quyen Vicente MD, Matthew F MD May 15, 2017 06:24 Whit Hdez May 15, 2017 06:37
[2017-05-15 06:45] LABS: BASOPHILS % (AUTO) 0.2 % (0-3); EOSINOPHILS % (AUTO) 0.6 % (0-5); MONOCYTES % (AUTO) 9.6 % (4-12); Mean Corpuscular Hemoglobin 28.7 pg (27.0-35.0); Mean Corpuscular Volume 81.8 fL (81-100); NEUTROPHILS % (AUTO) 68.6 % (40-74); Platelet Count 128 bil/L (150-400)
[2017-05-15 07:12] LABS: INR 0.99 ratio
[2017-05-15] MEDS ORDERED: ALPRAZolam 0.5 mg Tablet PO ONE (07:45)
== END 2017-05-15 09:20 | disposition home or self-care (01) ==
LOC: SED 05:40
DX: F10.230 Alcohol dependence with withdrawal, uncomplicated (principal); F41.9 Anxiety disorder, unspecified; R25.1 Tremor, unspecified; I10 Essential (primary) hypertension; Z98.890 Other specified postprocedural states; Z79.82 Long term (current) use of aspirin; K70.10 Alcoholic hepatitis without ascites
CPT/HCPCS: 36415; 80053; 81002; 82075; 84443; 85025; 85610; 93005; 96374; 99285; G0480; J2060